=== PATIENT | female | born 1955 | race Caucasian/White ===

== ENCOUNTER → 2016-09-27 | Outpatient (CLI) | payer BC ==
[~2016-09-27] MED LIST: AMLO-110 PO; ASCO500T16 PO; ASPI325T45 PO; ATOR10TA88 PO; BLAC40CA2; CALC-494 PO; CANA1TAB PO; CHOL100010 PO; CYCL10TA6 PO; DULO60CA44 PO; HYDC25 PO; LIDO5DIS10 TD; METF-384 PO; MULT-506 PO; POTACAP PO; SUMA100T16 PO; TRAZ1TAB16 PO; [UNRECOGNIZED DRUG - CODE] PO
--- NOTE | 2016-09-27 15:29 | MAMMOGRAPHY REPORT ---
BILATERAL DIGITAL SCREENING MAMMOGRAM WITH CAD: 09/27/2016 CLINICAL HISTORY: Routine screening examination. TECHNIQUE: Bilateral CC and MLO views were obtained. Current study was also evaluated with a Comput er Aided Detection (CAD) system. COMPARISON: Comparison is made to exams dated: 09/15/2015 mammogram, 09/11/2014 mammogram, 09/10/2013 corey mogram, and 09/06/2011 mammogram - [facility]. BREAST COMPOSITION: There are scattered areas of fibroglandular density in both breasts. FINDINGS: There is a stable 17 mm mass in the 12:00 right breast, that is unchanged in size dating b ack to at least 06/06/2007. There is a benign rim calcification within the left breast. No new andry picious mass, architectural distortion or cluster of microcalcifications is seen. IMPRESSION: ACR BI-RADS CATEGORY 1: NEGATIVE There is no mammographic evidence of malignancy. A 1 year screening mammogram is recommended. The p atient will receive written notification of the results. Approximately 10% of breast cancers are not detected with mammography. A negative mammographic repor t should not delay biopsy if a clinically suggestive mass is present. Krystal Woodward M.D. ay/:09/27/2016 15:23:47 Game Room Attendant: Glenys CROFT(Della)(M), [facility] letter sent: Normal 1/2 BI-RADS Code: ACR BI-RADS Category 1: Negative
== END | disposition home or self-care (01) ==
LOC: C.MAMM 15:04
PROVIDERS: ATTEND Obstetrics & Gynecology
DX: Z12.31 Encounter for screening mammogram for malignant neoplasm of breast (principal)

== ENCOUNTER → 2017-05-25 | Outpatient (CLI) | payer BC ==
[~2017-05-25] MED LIST changes: +ATOR10TA82 PO; -ATOR10TA88 PO; +TRAZ-119 PO; -TRAZ1TAB16 PO
--- NOTE | 2017-05-25 17:49 | DIAGNOSTIC IMAGING REPORT ---
KUB HISTORY: Left-sided flank pain with history of nephrolithiasis N20.0 Nephrolithiasis COMPARISON: KUB 05/20/2016 FINDINGS: The bowel gas pattern is non-obstructive. There is no organomegaly. No definite renal or ureteral calculi. 4 mm radiodensity projects superior to the right renal shadow between the 11th and 12th ribs which is indeterminate. Moderate stool volume suggests constipation. The Stool partially obscures the renal shadows. No pneumoperitoneum or pneumatosis. No fracture. IMPRESSION: 1. No definite renal or ureteral calculi identified. 2. Suggested constipation. 3. Nonobstructive bowel gas pattern. Electronically signed by: Landry Tamayo M.D. 05/25/2017 5:47 PM Dictated Date/Time: 05/25/2017 5:45 PM
== END | disposition home or self-care (01) ==
LOC: C.RAD 17:04
PROVIDERS: ATTEND Urology
DX: N20.0 Calculus of kidney (principal)

== ENCOUNTER → 2017-05-30 | Outpatient (CLI) | payer BC ==
--- NOTE | 2017-05-30 13:06 | DIAGNOSTIC IMAGING REPORT ---
CT SCAN OF THE ABDOMEN AND PELVIS WITHOUT CONTRAST CLINICAL HISTORY: N20.1 Ureteral [id number] Left flank pain COMPARISON STUDY: 03/20/2013 TECHNIQUE: CT scan of the abdomen and pelvis was performed from the lung bases to the proximal femurs. Images are reviewed in the axial, sagittal, and coronal planes. IV contrast was not administered for this examination. A dose lowering technique was utilized adhering to the principles of ALARA. CT DOSE: 1120.44 mGy.cm FINDINGS: Lower chest: There are dependent bibasilar opacities, likely atelectatic. Liver: The unenhanced liver is normal in size, contour, and attenuation. There is no intrahepatic biliary ductal dilatation. Gallbladder: Unremarkable. Spleen: Normal in size and attenuation. Pancreas: Unremarkable. Adrenal glands: Unremarkable. Kidneys: No renal, ureteral, or bladder calculi are visualized. There are left renal parapelvic cysts. There is a 19 mm cortical cyst arising from the lower pole left kidney. Bowel: There are no transition zones to indicate bowel obstruction. Appendix appears normal. There is colonic diverticulosis. There are no acute peridiverticular inflammatory changes. Peritoneum: There is no intraperitoneal free air or abdominal ascites. Vasculature: The abdominal aorta is normal in course and caliber. Adenopathy: None. Pelvic viscera: The bladder, and pelvic viscera are unremarkable. Skeletal structures: No destructive osseous lesions are seen. IMPRESSION: 1. No renal, ureteral, or bladder calculi identified. 2. No evidence of bowel obstruction. No evidence of free air 3. Normal appendix 4. Colonic diverticulosis. No evidence of acute diverticulitis Electronically signed by: Bobby Weir M.D. 05/30/2017 1:04 PM Dictated Date/Time: 05/30/2017 12:57 PM
== END | disposition home or self-care (01) ==
LOC: C.CTS 12:33
PROVIDERS: ATTEND Nurse Practitioner Adult Health
DX: N20.1 Calculus of ureter (principal); R10.9 Unspecified abdominal pain; K57.30 Diverticulosis of large intestine without perforation or abscess without bleeding

== ENCOUNTER → 2017-10-10 | Outpatient (CLI) | payer OTHER ==
--- NOTE | 2017-10-11 07:55 | MAMMOGRAPHY REPORT ---
BILATERAL DIGITAL SCREENING MAMMOGRAM TOMOSYNTHESIS WITH CAD: 10/10/2017 CLINICAL HISTORY: Routine screening. Patient has no complaints. TECHNIQUE: Breast tomosynthesis in addition to standard 2D mammography was performed. Current study was also evaluated with a Computer Aided Detection (CAD) system. COMPARISON: Comparison is made to exams dated: 09/27/2016 mammogram, 09/15/2015 mammogram, 09/11/2014 corey mogram, 09/10/2013 mammogram, 09/07/2012 mammogram, and 09/06/2011 mammogram - [facility] BREAST COMPOSITION: There are scattered areas of fibroglandular density in both breasts. FINDINGS: There is a stable benign 15 mm lobulated and circumscribed mass in the 12:00 right breast. No suspicious spiculated or irregular mass, asymmetry, architectural distortion or cluster of microc alcifications is seen. IMPRESSION: ACR BI-RADS CATEGORY 1: NEGATIVE There is no mammographic evidence of malignancy. A 1 year screening mammogram is recommended. The pa tient will receive written notification of the results. Approximately 10% of breast cancers are not detected with mammography. A negative mammographic report should not delay biopsy if a clinically suggestive mass is present. Krystal Woodward M.D. ay/:10/10/2017 15:11:59 Auto Body Repair Estimator: Caity Ragland, [facility] letter sent: Normal 1/2 BI-RADS Code: ACR BI-RADS Category 1: Negative
== END | disposition home or self-care (01) ==
LOC: C.MAMM 08:15
PROVIDERS: ATTEND Obstetrics & Gynecology
DX: Z12.31 Encounter for screening mammogram for malignant neoplasm of breast (principal)

== ENCOUNTER 2021-08-26 04:58 | Observation (INO) ==
--- NOTE | 2021-08-09 12:39 | PAT Medication Instructions ---
Medication Instructions Date of Service August 09, 2021 Home Medications albuterol sulfate 90 mcg/actuation aerosol inhaler 1 puff INH UD PRN amlodipine 10 mg tablet 10 mg PO QAM ascorbic acid (vitamin C) 500 mg tablet 500 mg PO QAM aspirin 325 mg tablet 162.5 mg PO QAM atorvastatin 10 mg tablet 10 mg PO HS cyclobenzaprine 10 mg tablet 10 mg PO UD PRN diazepam 5 mg tablet 5 mg PO UD PRN (taken prior to flying) duloxetine 60 mg PO HS gabapentin 300 mg capsule 300 mg PO TID lidocaine 5 % topical patch (Lidoderm) 1 patch TRANSDERMAL UD PRN multivitamin 1 tab PO QAM potassium chloride 1 dose PO QAM psyllium husk 0.52 gram capsule 0.52 g PO DAILY PRN sumatriptan succinate 100 mg tablet 100 mg PO UD PRN trazodone 150 mg tablet 75 mg PO HS Elecon Topical Cream 1 dose TOPICAL DAILY cholecalciferol (vitamin D3) 125 mcg (5,000 unit) tablet (Vitamin D3) 125 mcg PO QAM glucosamine sulf dipot chlr,msm,chond 550 mg-C 30 mg-isidro 1 mg capsule (Glucosamine Chondroitin) 1 cap PO QAM meloxicam 15 mg tablet 15 mg PO QAM metformin 500 mg tablet 500 mg PO BID turmeric 400 mg capsule 400 mg PO QAM vitamin B complex 1 cap PO QAM ASK your surgeon for instructions lidocaine 5 % topical patch (Lidoderm) 1 patch TRANSDERMAL UD PRN (do not put on or near surgical site) meloxicam 15 mg tablet 15 mg PO QAM ASK your prescriber and surgeon aspirin 325 mg tablet 162.5 mg PO QAM STOP taking 2 weeks before surgery glucosamine sulf dipot chlr,msm,chond 550 mg-C 30 mg-isidro 1 mg capsule (Glucosamine Chondroitin) 1 cap PO QAM turmeric 400 mg capsule 400 mg PO QAM STOP taking 24 hours before surgery Elecon Topical Cream 1 dose TOPICAL DAILY DO NOT take the morning of surgery ascorbic acid (vitamin C) 500 mg tablet 500 mg PO QAM cyclobenzaprine 10 mg tablet 10 mg PO UD PRN multivitamin 1 tab PO QAM potassium chloride 1 dose PO QAM psyllium husk 0.52 gram capsule 0.52 g PO DAILY PRN cholecalciferol (vitamin D3) 125 mcg (5,000 unit) tablet (Vitamin D3) 125 mcg PO QAM metformin 500 mg tablet 500 mg PO BID vitamin B complex 1 cap PO QAM Take morning of surgery With a small sip of water, OTHERWISE NOTHING TO EAT OR DRINK AFTER MIDNIGHT: albuterol sulfate 90 mcg/actuation aerosol inhaler 1 puff INH UD PRN(use if needed; please bring with you to hospital day of surgery if possible) amlodipine 10 mg tablet 10 mg PO QAM gabapentin 300 mg capsule 300 mg PO TID sumatriptan succinate 100 mg tablet 100 mg PO UD PRN(if needed) Take evening before surgery albuterol sulfate 90 mcg/actuation aerosol inhaler 1 puff INH UD PRN(if needed) atorvastatin 10 mg tablet 10 mg PO HS cyclobenzaprine 10 mg tablet 10 mg PO UD PRN(if needed) duloxetine 60 mg PO HS gabapentin 300 mg capsule 300 mg PO TID sumatriptan succinate 100 mg tablet 100 mg PO UD PRN(if needed) trazodone 150 mg tablet 75 mg PO HS metformin 500 mg tablet 500 mg PO BID Other Notes If you have any questions please call us at [phone] or [phone] or [phone] or [phone]
--- NOTE | 2021-08-12 13:27 | Anesthesiology Consultation ---
Date of Service August 12, 2021 Assessment & Plan (1) Encounter for pre-operative examination: - check BSG am DOS. - T&S: Not obtained at [facility] appt in error, pt contacted and states has PCP [facility] appt 08/18/21 and will come to [facility] same day, aware it will need done within [place]. - surgeon ordered medical clearance. - Outpatient joint assessment: Patient is currently scheduled for inpatient pathway. If re-evaluated pending system levels during current pandemic/surgeon requests outpatient pathway, patient is not recommended candidate for outpatient joint program from anesthesia standpoint. - COVID screening: Per assessment on 08/12/2021: Travel screen negative, no known COVID-19 positive contacts or current COVID-19 related symptoms in past 2 weeks. Patient vaccinated. Surgeon arranging preop COVID testing, scheduled 08/24/2021. Awaiting results. Chart Review Chart Review: Pending: Refer to Additional Notes / Consult section (pending medical clearance and T&S) and Patient seen in Pre Admission Testing Teaching & Discussion Pre-Anesthesia Teaching/Discussion Notes: Instructed NPO after midnight before surgery, except medications with 15 cc of water. Medication instructions provided according to the [facility] guidelines. History Surgery Operation Date: 08/26/21 07:00 Proposed Procedures p Right Total Hip Arthroplasty - Tapan Quick MD Height/Weight Height: 5 ft 2 in Weight: 75.5 kg Allergies Allergy/AdvReac Type Severity Reaction Status Date / Time tetracycline Allergy Mild Rash Unverified 08/09/21 10:48 nickel Allergy Rash Verified 08/09/21 10:51 Penicillins Allergy Unknown Verified 08/09/21 10:48 steri-strips Allergy Rash Uncoded 08/09/21 10:51 Medications Home Medications Medication Instructions Recorded Confirmed Last Taken albuterol sulfate 90 mcg/actuation 1 puff INH UD PRN 09/26/19 08/09/21 Unknown aerosol inhaler amlodipine 10 mg tablet 10 mg PO QAM 09/26/19 08/09/21 Unknown ascorbic acid (vitamin C) 500 mg 500 mg PO QAM 09/26/19 08/09/21 Unknown tablet aspirin 325 mg tablet 162.5 mg PO QAM 09/26/19 08/09/21 Unknown atorvastatin 10 mg tablet 10 mg PO HS 09/26/19 08/09/21 Unknown cyclobenzaprine 10 mg tablet 10 mg PO UD PRN 09/26/19 08/09/21 Unknown diazepam 5 mg tablet 5 mg PO UD PRN 09/26/19 08/09/21 Unknown duloxetine 60 mg PO HS 09/26/19 08/09/21 Unknown gabapentin 300 mg capsule 300 mg PO TID 09/26/19 08/09/21 Unknown lidocaine 5 % topical patch 1 patch TRANSDERMAL UD PRN 09/26/19 08/09/21 Unknown (Lidoderm) multivitamin 1 tab PO QAM 09/26/19 08/09/21 Unknown potassium chloride 1 dose PO QAM 09/26/19 08/09/21 Unknown psyllium husk 0.52 gram capsule 0.52 g PO DAILY PRN 09/26/19 08/09/21 Unknown sumatriptan succinate 100 mg tablet 100 mg PO UD PRN 09/26/19 08/09/21 Unknown trazodone 150 mg tablet 75 mg PO HS 09/26/19 08/09/21 Unknown Elecon Topical Cream 1 dose TOPICAL DAILY 08/09/21 08/09/21 Unknown cholecalciferol (vitamin D3) 125 125 mcg PO QAM 08/09/21 08/09/21 Unknown mcg (5,000 unit) tablet (Vitamin D3) glucosamine sulf dipot 1 cap PO QAM 08/09/21 08/09/21 Unknown chlr,msm,chond 550 mg-C 30 mg-isidro 1 mg capsule (Glucosamine Chondroitin) meloxicam 15 mg tablet 15 mg PO QAM 08/09/21 08/09/21 Unknown metformin 500 mg tablet 500 mg PO BID 08/09/21 08/09/21 Unknown turmeric 400 mg capsule 400 mg PO QAM 08/09/21 08/09/21 Unknown vitamin B complex 1 cap PO QAM 08/09/21 08/09/21 Unknown Past Medical History Medical History Abnormal ultrasound > 5 yrs ago; reports incidental finding on ultrasound of left neck/chest prior to parathyroidectomy. clot vs abnormal blood vessel?? was monitored for several months [facility] and no changes. Chronic pain DDD (degenerative disc disease) cervical and lumbar per pt Depression DM type 2 (diabetes mellitus, type 2) controlled, stable per pt GERD (gastroesophageal reflux disease) PRN OTC antacids History of anesthesia reaction woke up during facial surgery for left orbit fracture as a child History of cardiac murmur as a child denies detection in adulthood History of gastric ulcer History of hepatitis B History of migraine HLD (hyperlipidemia) HTN (hypertension) controlled, stable per pt Hypercalcemia Osteoarthritis Spinal stenosis Stage 3a chronic kidney disease (CKD) Suspected sleep apnea spouse has witnessed apnea Patient denies h/o stroke, seizures, heart attack, heart failure or blood transfusions. Exercise / Class Metabolic Activity III < 4 Walking/Shop/Light housework (denies CP or SOB, avoid stairs d/t orthopedic limitations) Past Family History Family History Mother Nephrolithiasis Other Cancer Hypertension No family history of adverse response to anesthesia Past Surgical History Surgical History H/O laminectomy cervical; limited ROM side to side H/O: section History of x2 History of carpal tunnel surgery of left wrist History of colonoscopy History of cystoscopy with stone extraction History of esophagogastroduodenoscopy (EGD) History of facial surgery left orbit fracture as a child History of lithotripsy History of parathyroidectomy History of repair of anterior cruciate ligament of right knee History of tonsillectomy Past Anesthesia History No Family Hx of Anesthesia Complications and Other (woke during facial surgery in childhood) History of PONV History of PONV and Hx of Motion Sickness Social History Smoking Status: Former smoker Do You Dip or Chew Tobacco: No Smoking End Date: 33 years ago Hx Alcohol Use: No Hx Substance Use: Yes substance use type: marijuana Substance Use Type Other:: medical marijuana Last Used Substance: Unknown Review of Systems She reports chronic intermittent cough in winter, nonproductive, related to postnasal drip. Patient denies chest pain, shortness of breath, dyspnea on exertion, reflux, fever, chills, wheezing, or palpitations. Physical Exam Vital Signs Vitals BP 135/76 P 75 TEMP 98.4 SP02 97% on RA RESP 16 Physical Mildly limited cervical extension range of motion without pain TMD 3.5 finger breaths Mallampati Score 3 Dentition: intact, partial upper right front to side and several missing lower side and back; denies chipped or loose teeth, caps/crowns or implants Lungs: normal respiratory effort. Clear throughout to auscultation, no adventitious breath sounds Cardiac: regular rate and rhythm, no murmurs noted Carotid arteries: negative bruit bilat Extremities: no distal extremity edema Testing Laboratory Results 08/12/2021 SODIUM: 144 POTASSIUM: 4.0 CHLORIDE: 105 CO2: 25 BUN: 19 CREATININE: 1.1 GLUCOSE: 102 A1c: 5.2% Electrocardiogram Date: 08/12/21 NSR, rate 64 bpm
--- NOTE | 2021-08-12 15:42 | History & Physical Report ---
Date of Service August 12, 2021 Assessment & Plan (1) Osteoarthritis of right hip: Plan: PRE-OP Diagnosis: Right hip osteoarthritis Planned Procedure: Right total hip arthroplasty Plan: Patient is scheduled to undergo this procedure at the [facility] with 23-hour observation admission on , August 26, [address] Tapan Quick. Risks and complications of the procedure such as: Infection, bleeding, pain, scarring, nerve blood vessel damage, weakness, wound problems, stiffness, incomplete relief of symptoms, hardware failure, hardware loosening, wear, fracture, tendon or ligament injury, dislocation, leg length inequality, blood clots, embolism, heart attack, stroke and were explained to the patient at her visit today. Informed consent to perform the procedure was obtained. Patient also understands risks of proceeding with surgical intervention during COVID-19 pandemic. Currently she is asymptomatic and understands that she will need to be tested prior to surgery. Patient states she has an upcoming appointment with her primary care provider Dr. Mcgarry for clearance. She states that she has an appointment with anesthesia the hospital later this morning. While there she will obtain a CBC with differential, complete metabolic panel, PT/INR, blood type and screen, urinalysis, urine culture and sensitivity, EKG, hemoglobin A1c and a nasal culture for MRSA. During today's visit we discussed discharge planning from the hospital following surgery. We reviewed the total hip packet in total hip precautions. Patient states she already has a walker, hip kit, shower chair and a raised toilet seat at home. We discussed joint venture lectures offered by [facility] in regards to joint replacement surgery. Patient states she will most likely attend one of the upcoming ones via zoom. We also discussed antibiotic use following joint replacement surgery prior to dental appointments. Advised the patient she will be discharged from the hospital with a narcotic pain medication, and anti-inflammatory and some type of blood thinning agents. We may consider either Eliquis or Xarelto due to her history of jugular venous thrombosis. I advised the patient that case management will meet with her prior to discharge to get her set up with some in-home therapy for the first 2 weeks postoperatively. At her 2-week postoperative follow-up with myself on September 10 at 1 PM I will provide her with an order for outpatient physical therapy along with her rehab protocol. Patient verbalized understanding of all information provided during today's visit. She thanks for the care that she received. If she has questions or concerns should arise prior to her surgery, she will contact the clinic. History of Present Illness Chief Complaint: Chief Complaint: Bilateral hip pain Primary Care Provider: Demetris Mcgarry MD History of Present Illness (including history relevant to procedure): This 65-year-old female presents the clinic today for preoperative history and physical. Patient complains of bilateral hip pain for the past several years. She states her right bothers her much more than her left. She states that she has tried meloxicam Advil Tylenol. Has had multiple ultrasound-guided corticosteroid injections into her hip joints without relief. She has done extensive physical therapy and some home rehab and feels that her pain continues to become worse. She has difficulty going up or down stairs. She states that even putting on pants is sometimes difficult. Patient is ready to proceed with surgical intervention for hip osteoarthritis. Review Of Systems: A 12 point review of systems is performed and is unremarkable except for those things stated in the HPI and past medical history. Past Medical History: Problems: Degenerative joint disease of right hip Bilateral hip joint arthritis. Metatarsal fracture with malunion Injury of left foot Metatarsal fracture Status post surgery Internal jugular vein thrombosis Weight monitoring Preoperative state Anxiety depression Acne MIGRAINE Hypercholesterolemia HYPERTENSION Difficulty sleeping NECK PAIN Undiagnosed sleep apnea Diabetes Hypothyroidism History of renal calculi History of hepatitis B Procedure History Procedure Procedure Date Comments section: 89 & 92 Parathyroidectomy 2014 Kidney stones Operation 2010 & 2013 Lithotripsy 2013 Colonoscopy 2004 Cervical laminectomy 2002 Carpal tunnel release 2000 ACL - Right Reconstruction of anterior cruciate ligament 1995 Eye operation 1967 Reconstruction of facial bones 1967 Tonsillectomy 196 Allergies and Sensitivities: tetracycline(Rash) Social history: Patient denies tobacco or alcohol use. She states that she uses medical marijuana for her chronic pain. Family history: Cancer: MGF, Mother Diabetes mellitus: MGM Heart attack: PGF, PGM Heart disease: PGF, PGM Lung cancer......: Father Current Home Meds: (Last Updated 08/12 11:43) APAP/ASA/caffeine (Excedrin Migraine oral tablet) 2 tab PO ONCE PRN: as needed for headache DULoxetine (DULoxetine 30 mg oral delayed release capsule) 30 mg PO Daily amlodipine (amLODIPine 10 mg oral tablet) 10 mg PO qAM ascorbic acid (Vitamin C 500 mg oral capsule) 1 cap PO Daily aspirin 160 mg PO Daily atorvastatin (Lipitor 10 mg oral tablet) 10 mg PO qhs calcium and vitamin D combination 1 tab PO Daily cyclobenzaprine (Flexeril 10 mg oral tablet) 10 mg PO tid PRN: as needed for spasm diazePAM diclofenac topical (diclofenac 1% topical gel) 1 appl topical qid gabapentin (gabapentin 300 mg oral capsule) hydrochlorothiazide 25 mg PO Daily dose unknown daily - D Calixto 01/19 12:46 lidocaine topical (Lidoderm 5% topical patch) topical Daily meloxicam (Mobic 15 mg oral tablet) 15 mg PO Daily metFORMIN (metformin) 500 mg PO Daily multivitamin 1 tab PO Daily multivitamin (B-Complex 50) polycarbophil (Fibertab) 1 tab PO Daily potassium chloride (potassium chloride 99 mg oral tablet) 99 mg PO Daily sumatriptan (Imitrex 100 mg oral tablet) 1 tab PO ONCE PRN: as needed for migraine headache trazodone (traZODone 50 mg oral tablet) 50 mg PO qhs PRN: sleep Initial Wt: 08/12 74.8 kg 165 lb Allergies Allergy/AdvReac Type Severity Reaction Status Date / Time tetracycline Allergy Mild Rash Unverified 08/09/21 10:48 nickel Allergy Rash Verified 08/09/21 10:51 Penicillins Allergy Unknown Verified 08/09/21 10:48 steri-strips Allergy Rash Uncoded 08/09/21 10:51 Home Medications Medication Instructions Recorded Confirmed Type albuterol sulfate 90 mcg/actuation 1 puff INH UD PRN 09/26/19 08/09/21 History aerosol inhaler amlodipine 10 mg tablet 10 mg PO QAM 09/26/19 08/09/21 History ascorbic acid (vitamin C) 500 mg 500 mg PO QAM 09/26/19 08/09/21 History tablet aspirin 325 mg tablet 162.5 mg PO QAM 09/26/19 08/09/21 History atorvastatin 10 mg tablet 10 mg PO HS 09/26/19 08/09/21 History cyclobenzaprine 10 mg tablet 10 mg PO UD PRN 09/26/19 08/09/21 History diazepam 5 mg tablet 5 mg PO UD PRN 09/26/19 08/09/21 History duloxetine 60 mg PO HS 09/26/19 08/09/21 History gabapentin 300 mg capsule 300 mg PO TID 09/26/19 08/09/21 History lidocaine 5 % topical patch 1 patch TRANSDERMAL UD PRN 09/26/19 08/09/21 History (Lidoderm) multivitamin 1 tab PO QAM 09/26/19 08/09/21 History potassium chloride 1 dose PO QAM 09/26/19 08/09/21 History psyllium husk 0.52 gram capsule 0.52 g PO DAILY PRN 09/26/19 08/09/21 History sumatriptan succinate 100 mg tablet 100 mg PO UD PRN 09/26/19 08/09/21 History trazodone 150 mg tablet 75 mg PO HS 09/26/19 08/09/21 History Elecon Topical Cream 1 dose TOPICAL DAILY 08/09/21 08/09/21 History cholecalciferol (vitamin D3) 125 125 mcg PO QAM 08/09/21 08/09/21 History mcg (5,000 unit) tablet (Vitamin D3) glucosamine sulf dipot 1 cap PO QAM 08/09/21 08/09/21 History chlr,msm,chond 550 mg-C 30 mg-isidro 1 mg capsule (Glucosamine Chondroitin) meloxicam 15 mg tablet 15 mg PO QAM 08/09/21 08/09/21 History metformin 500 mg tablet 500 mg PO BID 08/09/21 08/09/21 History turmeric 400 mg capsule 400 mg PO QAM 08/09/21 08/09/21 History vitamin B complex 1 cap PO QAM 08/09/21 08/09/21 History Past Med/Surg History Medical History Abnormal ultrasound > 5 yrs ago; reports incidental finding on ultrasound of left neck/chest prior to parathyroidectomy. clot vs abnormal blood vessel?? was monitored for several months [facility] [place] and no changes. Chronic pain DDD (degenerative disc disease) cervical and lumbar per pt Depression DM type 2 (diabetes mellitus, type 2) controlled, stable per pt GERD (gastroesophageal reflux disease) PRN OTC antacids History of anesthesia reaction woke up during facial surgery for left orbit fracture as a child History of cardiac murmur as a child denies detection in adulthood History of gastric ulcer History of hepatitis B History of migraine HLD (hyperlipidemia) HTN (hypertension) controlled, stable per pt Hypercalcemia Osteoarthritis Spinal stenosis Stage 3a chronic kidney disease (CKD) Suspected sleep apnea spouse has witnessed apnea Surgical History H/O laminectomy cervical; limited ROM side to side H/O: section History of x2 History of carpal tunnel surgery of left wrist History of colonoscopy History of cystoscopy with stone extraction History of esophagogastroduodenoscopy (EGD) History of facial surgery left orbit fracture as a child History of lithotripsy History of parathyroidectomy History of repair of anterior cruciate ligament of right knee History of tonsillectomy Family History Mother Nephrolithiasis Other Cancer Hypertension No family history of adverse response to anesthesia Social History Smoking Status: Former smoker Second Hand Exposure: No; Hx Alcohol Use: No Hx Substance Use: Yes Last Used Substance: Unknown Substance Use Type Other:: medical marijuana Preferred Language: Chinese Communication Ability: Effective Police Aide Required: No Beliefs That Will Affect Care: None Current Living Situation: Spouse Feels Safe at Home: Yes Assistive Devices: Cane, Glasses and Walker Review of Systems All systems reviewed & are unremarkable except as noted in Subjective Physical Exam Physical Exam: Physical Exam: (relevant to the procedure, including heart and lung evaluation) General: Alert and oriented x3 with proper grooming and hygiene Eyes: Pupils are equal and reactive to light with accommodation. Extraocular moods are intact Throat: Deferred due to COVID-19 precautions Cardiac: Regular rate and rhythm no murmurs or gallops appreciated Lungs: Clear to auscultation throughout with no wheezing, rales or rhonchi Abdomen: Mildly obese, nondistended, nontender with NABS Extremities: Right hip; flexion is limited to 90 degrees, external rotation to 50 degrees and internal rotation to 0 degrees. All of these positions cause referred pain to the groin. Straight leg raise test causes referred pain to the groin as the Stinchfield test. There is palpable crepitation with passive range of motion. Patient is neurovascularly intact in right lower extremity. She does walk with a slight antalgic gait. Neuro: Cranial nerves II through XII are intact with no motor or sensory deficit Skin: Normal in appearance with no open skin areas or discharge Results & Data ([facility]) Diagnostic Findings Studies (relevant to the procedure): X-rays done today, personally interpreted by me include standing AP pelvis and 2 views of each hip. These are compared with her prior films done back in June 2018. There has been interval loss of the superior joint space bilaterally. She has now [id number] arthritis in both hips.
--- NOTE | 2021-08-25 09:00 | Anesthesiology Consultation ---
Date of Service August 25, 2021 History Surgery Operation Date: 08/26/21 07:00 Proposed Procedures p Right Total Hip Arthroplasty - Tapan Quick MD Height/Weight Height: 5 ft 2 in Weight: 75.5 kg Allergies Allergy/AdvReac Type Severity Reaction Status Date / Time tetracycline Allergy Mild Rash Unverified 08/09/21 10:48 nickel Allergy Rash Verified 08/09/21 10:51 Penicillins Allergy Unknown Verified 08/09/21 10:48 steri-strips Allergy Rash Uncoded 08/09/21 10:51 Medications Home Medications Medication Instructions Recorded Confirmed Last Taken albuterol sulfate 90 mcg/actuation 1 puff INH UD PRN 09/26/19 08/09/21 Unknown aerosol inhaler amlodipine 10 mg tablet 10 mg PO QAM 09/26/19 08/09/21 Unknown ascorbic acid (vitamin C) 500 mg 500 mg PO QAM 09/26/19 08/09/21 Unknown tablet aspirin 325 mg tablet 162.5 mg PO QAM 09/26/19 08/09/21 Unknown atorvastatin 10 mg tablet 10 mg PO HS 09/26/19 08/09/21 Unknown cyclobenzaprine 10 mg tablet 10 mg PO UD PRN 09/26/19 08/09/21 Unknown diazepam 5 mg tablet 5 mg PO UD PRN 09/26/19 08/09/21 Unknown duloxetine 60 mg PO HS 09/26/19 08/09/21 Unknown gabapentin 300 mg capsule 300 mg PO TID 09/26/19 08/09/21 Unknown lidocaine 5 % topical patch 1 patch TRANSDERMAL UD PRN 09/26/19 08/09/21 Unknown (Lidoderm) multivitamin 1 tab PO QAM 09/26/19 08/09/21 Unknown potassium chloride 1 dose PO QAM 09/26/19 08/09/21 Unknown psyllium husk 0.52 gram capsule 0.52 g PO DAILY PRN 09/26/19 08/09/21 Unknown sumatriptan succinate 100 mg tablet 100 mg PO UD PRN 09/26/19 08/09/21 Unknown trazodone 150 mg tablet 75 mg PO HS 09/26/19 08/09/21 Unknown Elecon Topical Cream 1 dose TOPICAL DAILY 08/09/21 08/09/21 Unknown cholecalciferol (vitamin D3) 125 125 mcg PO QAM 08/09/21 08/09/21 Unknown mcg (5,000 unit) tablet (Vitamin D3) glucosamine sulf dipot 1 cap PO QAM 08/09/21 08/09/21 Unknown chlr,msm,chond 550 mg-C 30 mg-isidro 1 mg capsule (Glucosamine Chondroitin) meloxicam 15 mg tablet 15 mg PO QAM 08/09/21 08/09/21 Unknown metformin 500 mg tablet 500 mg PO BID 08/09/21 08/09/21 Unknown turmeric 400 mg capsule 400 mg PO QAM 08/09/21 08/09/21 Unknown vitamin B complex 1 cap PO QAM 08/09/21 08/09/21 Unknown Past Medical History Medical History (Updated 08/25/21 @ 08:59 by Gretchen Juan PA-C) Abnormal ultrasound > 5 yrs ago; reports incidental finding on ultrasound of left neck/chest prior to parathyroidectomy. clot vs abnormal blood vessel--was monitored for several months [facility] [place] and no changes. no available records per [facility]. Chronic pain DDD (degenerative disc disease) cervical and lumbar per pt Depression DM type 2 (diabetes mellitus, type 2) controlled, stable per pt GERD (gastroesophageal reflux disease) PRN OTC antacids History of anesthesia reaction woke up during facial surgery for left orbit fracture as a child History of cardiac murmur as a child denies detection in adulthood History of gastric ulcer History of hepatitis B History of migraine HLD (hyperlipidemia) HTN (hypertension) controlled, stable per pt Hypercalcemia Osteoarthritis Spinal stenosis Stage 3a chronic kidney disease (CKD) Suspected sleep apnea spouse has witnessed apnea Past Family History Family History Mother Nephrolithiasis Other Cancer Hypertension No family history of adverse response to anesthesia Past Surgical History Surgical History H/O laminectomy cervical; limited ROM side to side H/O: section History of x2 History of carpal tunnel surgery of left wrist History of colonoscopy History of cystoscopy with stone extraction History of esophagogastroduodenoscopy (EGD) History of facial surgery left orbit fracture as a child History of lithotripsy History of parathyroidectomy History of repair of anterior cruciate ligament of right knee History of tonsillectomy Social History Smoking Status: Former smoker Do You Dip or Chew Tobacco: No Smoking End Date: 33 years ago Hx Alcohol Use: No Hx Substance Use: Yes substance use type: marijuana Substance Use Type Other:: medical marijuana Last Used Substance: Unknown Testing Laboratory Results Blood Type A Positive 08/18/21 11:36 Antibody Screen NEGATIVE 08/18/21 11:36
[2021-08-26] MEDS ORDERED: Scopolamine 1 MG TDSY TD SCH (06:00)
[2021-08-26] MEDS ORDERED: LR 60ML/HR IV SCH (06:00)
[2021-08-26] MEDS ORDERED: FAMOTIDINE 20 MG TAB PO SCH (06:00)
[2021-08-26] MEDS ORDERED: LR 500ML BOLUS, THEN 15ML/HR IV SCH (06:00)
[2021-08-26] MEDS ORDERED: dexAMETHasone 4 MG TAB PO SCH (06:00)
[2021-08-26] MEDS ORDERED: TRANEXAMIC ACID 1,000 MG **IV Intra-op IV SCH (06:00)
[2021-08-26] MEDS ORDERED: TRANEXAMIC ACID 1,000 MG **IV Pre-op IV SCH (06:00)
[2021-08-26] MEDS ORDERED: traMADol HCL 50 MG TABLET PO SCH (06:00)
[2021-08-26] MEDS ORDERED: ROPIVACAINE 0.5% HCL/PF 150 MG, BUPIVACAINE 0.75% MPF 20 ML, EPINEPHrine 0.15 MG, Ketor... INFIL SCH (06:00)
[2021-08-26] MEDS ORDERED: ACETAMINOPHEN 500 MG TAB PO SCH (06:00)
[2021-08-26] MEDS ORDERED: BUPIVACAINE 0.5 % 5 MG/1 ML PF 10ML VIAL ONE (06:24)
[2021-08-26] MEDS ORDERED: ceFAZolin 2000MG 2,000 MG/15 ML SYR IV STA (06:32)
[2021-08-26] MEDS ORDERED: ORTHO JOINT ANESTHETIC ONE (06:36)
--- NOTE | 2021-08-26 06:40 | History & Physical Bridge Note ---
Date of Service August 26, 2021 History & Physical Bridge Note I have examined the patient, reviewed the History & Physical and in the interval since the performance of the History & Physical I have noted the following changes of clinical significance: no changes noted
[2021-08-26] MEDS ORDERED: fentaNYL citrate 100 MCG/2 ML VIAL ONE (06:46)
[2021-08-26] MEDS ORDERED: MIDAZOLAM HCL 1 MG/ML 2ML VIAL ONE ×2 (06:46)
[2021-08-26] MEDS ORDERED: ATROPINE SULFATE 0.1 MG/ML 10ML SYR IV PRN (07:47)
[2021-08-26] MEDS ORDERED: ePHEDrine sulfate 50 MG/ML AMP IV PRN (07:47)
[2021-08-26] MEDS ORDERED: PHENYLEPHRINE 100MCG/ML 5ML SYR ONE (07:51)
[2021-08-26] MEDS ORDERED: ePHEDrine sulfate 50 MG/ML SYR ONE (07:51)
[2021-08-26] MEDS ORDERED: LIDOCAINE 2% 2 ML VIAL/AMP(20MG/ML) INFIL ONE (07:51)
[2021-08-26] MEDS ORDERED: PROPOFOL IV EMULSION 10 MG/ML 20 ML VIAL IV ONE ×2 (07:51)
[2021-08-26] MEDS ORDERED: PHENYLEPHRINE HCL 10 MG/ML VIAL ONE (07:51)
--- NOTE | 2021-08-26 08:38 | Operative Report ---
Post Operative Report Pre & Post Diagnosis Operation Date: 08/26/21 07:00 Pre-Op Diagnosis: Right Hip Osteoarthritis Post-Op Diagnosis: Right Hip Osteoarthritis I identified the patient and participated in the time-out.: Yes Procedure Operation Date: 08/26/21 07:00 Actual Procedures p Right Total Hip Arthroplasty(Right) - Tapan Quick MD Surgeon Tapan Quick MD Buildings And Grounds Coordinator ULISES Bennett PA-C. No resident or fellow was available to assist. Estimated Blood Loss 100 Findings Consistent with Post-Op Diagnosis Specimens Right femoral head Anesthesia Type Spinal MAC Complications none Disposition Disposition: Recovery Room Indications 66-year-old female with right hip arthritis refractory to conservative management. X-rays show [id number] arthritis. Had a long discussion with her about the risks and benefits of surgery, alternatives to surgery, and expected outcomes. After reviewing all these she elected to proceed with surgery. All questions were answered. Informed consent was signed. Description of Procedure Patient was identified in the preoperative holding area and the surgical site, right hip, was marked. A spinal anesthetic was placed, then the patient was brought back to the main operating room, placed in the operating table and moved into the lateral decubitus position. Axillary roll was placed. All bony prominences were padded. Perioperative antibiotics and tranexamic acid 1 gram IV were administered. Operative extremity was prepped and draped in the normal sterile fashion. Prior to incision a multidisciplinary timeout was called. All in the room were in agreement. We began by making an incision for a posterior approach to the hip. We dissected down through subcutaneous tissues to the level of the fascia. The fascia was incised in line with the incision. Charnley bow was placed. The trochanteric bursa was excised. The piriformis and short external rotators were dissected off the posterior aspect of the hip. A box cut was made in the capsule. The femoral head was dislocated. The femoral neck cut was made at our preoperative template. The acetabulum was then exposed. The labrum was sharply excised. Contents of the cotyloid fossa were removed with electrocautery. We then began reaming at a size 8 mm less than our preoperative template. We reamed up by 1 [address] the way up to a size 54 mm cup. This gave us good bleeding cancellus bone circumferentially. The acetabulum was then irrigated out and dried. The real Conway Gription cup was then impacted down into position with 45 degrees of lateral opening and 25 degrees of anteversion. A single cancellous bone screw was placed up into the ilium. Excellent fixation was obtained. An Altrx polyethylene liner for a 36 mm femoral head was then impacted into the shell. The locking mechanism was checked to ensure that it had engaged which it had. Next we turned our attention to the femur. The lateral neck was removed with a box osteotome. Intramedullary guide was used followed by the lateralizing reamer. We then reamed up to a size 4 Dorado stem. We then broached all the way up to a size 4. We began trialing with a standard offset neck and a +1.5 head. Hip was reduced. Leg lengths were symmetric. The hip was stable in extension and external rotation, and stable in the sleeper position. At 90 degrees of hip flexion the hip could be internally rotated 70 degrees before levering out of the cup. I was very happy with the stability exam. Therefore the hip was dislocated and the femoral trial was removed. The femoral canal was irrigated and dried. The real size 4 standard offset Dorado femoral stem was opened up. This was impacted down into position. It sat 1 mm higher than the femoral trial. I did not want to downsize offset of the femoral head due to the risk of instability, and therefore the 36 mm ceramic femoral head with a +1.5 mm offset was opened up and gently impacted down onto the trunnion. The hip was atraumatically reduced. Another 1 gram of IV tranexamic acid was started prior to closure. The wound was irrigated out with sterile Betadine solution. The periarticular injection cocktail was then placed. The short external rotators, piriformis, and posterior capsule were repaired through drill holes in the greater trochanter using #2 Vicryl. The fascia was run with a looped #1 PDS. The subcutaneous layer was closed with #1 PDS. The dermal layer was closed with 2-0 Vicryl. Zip line was used for the skin followed by a Silverlon dressing. A compressive dressing was then placed. The patient was then rolled supine. Leg lengths were rechecked and were symmetric. An abduction pillow was placed. Sedation was lifted and the patient was transferred to recovery room in stable condition. Summary of implants: FireIDuy Conway Gription Acetabular Shell Sector Cup, 54 mm outer diameter Conway Cancellous bone screw, 6.5 x 30 mm Conway Altrx Polyethylene Acetabular Liner, Neutral, with a 36 mm inner diameter DePuy Dorado Femoral stem with Porocoat, 12/14 taper, size 4 standard 36 mm ceramic femoral head with +1.5 offset Postoperative course: Patient will be admitted to the hospital from the recovery room. Patient will be weightbearing as tolerated with posterior hip precautions. Aspirin for DVT prophylaxis I attest to the content of the Intraoperative Record and any orders documented therein. Any exceptions are noted below.
--- NOTE | 2021-08-26 08:47 | Operative Report ---
Post Operative Report Pre & Post Diagnosis Operation Date: 08/26/21 07:00 Pre-Op Diagnosis: Right Hip Osteoarthritis Post-Op Diagnosis: Right Hip Osteoarthritis I identified the patient and participated in the time-out.: Yes Procedure Operation Date: 08/26/21 07:00 Actual Procedures p Right Total Hip Arthroplasty(Right) - Tapan Quick MD Surgeon Tapan Quick MD Belt Cleaner ULISES Bennett PA-C. No resident or fellow was available to assist. Estimated Blood Loss 100 Findings Consistent with Post-Op Diagnosis Specimens Right femoral head Description of Procedure I was present during the entire case assisting with positioning, prepping, draping, wound retraction, wound closure, dressing and abduction pillow placement. No fellow present. Please see Dr. Quick procedure note for specifics of the case. I attest to the content of the Intraoperative Record and any orders documented therein. Any exceptions are noted below.
[2021-08-26] MEDS ORDERED: bisacodyL 10 MG SUPP PR PRN (08:48)
[2021-08-26] MEDS ORDERED: NALOXONE HCL 0.4 MG/1 ML VIAL/CARP IV PRN (08:48)
[2021-08-26] MEDS ORDERED: diphenhydrAMINE 50 MG/ML VIAL IV PRN (08:48)
[2021-08-26] MEDS ORDERED: METOCLOPRAMIDE HCL INJ 5 MG/ML 2 ML VIAL IV PRN (08:48)
[2021-08-26] MEDS ORDERED: ALUMINUM/MAGNESIUM SUSP 30 ML UDC PO PRN (08:48)
[2021-08-26] MEDS ORDERED: MAGNESIUM HYDROXIDE SUSP 30 ML UDC PO PRN (08:48)
[2021-08-26] MEDS ORDERED: ONDANSETRON INJ 2 MG/ML 2 ML VIAL IV PRN (08:48)
[2021-08-26] MEDS ORDERED: diazePAM 5 MG TABLET PO PRN (08:51)
[2021-08-26] MEDS ORDERED: LIDOCAINE 5% 1 PATCH TD PRN (08:51)
[2021-08-26] MEDS ORDERED: SUMAtriptan succinate 100 MG TAB PO PRN (08:51)
[2021-08-26] MEDS ORDERED: CYCLOBENZAPRINE HCL 10 MG TAB PO PRN (08:51)
[2021-08-26] MEDS ORDERED: ALBUTEROL HFA 8 GM INHALER INH PRN (08:51)
[2021-08-26] MEDS ORDERED: ASPIRIN 81 MG ECTAB PO SCH (09:00)
[2021-08-26] MEDS ORDERED: NON-FORMULARY MEDICATION (Multivitamin tablet) PO SCH (09:00)
[2021-08-26] MEDS ORDERED: POTASSIUM CHLORIDE PO SCH (09:00)
[2021-08-26] MEDS ORDERED: NON-FORMULARY MEDICATION (Glucos Sul 2kcl-Msm-Chond-C-Mn [Glucosamine Chondroitin] 550-30- PO SCH (09:00)
[2021-08-26] MEDS ORDERED: SODIUM CHLORIDE 0.9% 1000ML 1,000 ML IV SCH (09:00)
[2021-08-26] MEDS ORDERED: NON-FORMULARY MEDICATION (Turmeric 400 mg Capsule) PO SCH (09:00)
--- NOTE | 2021-08-26 09:18 | XRay Report ---
XR pelvis 1-2V routine CLINICAL HISTORY: Post Surgical. COMPARISON STUDY: No previous studies for comparison. TECHNIQUE: [A single AP radiograph was obtained. FINDINGS: There is no evidence for an acute fracture. The patient is status post noncemented total hip prosthes is on the right. There is mild narrowing of the left hip joint space. The SI joints are intact bilate rally. The remaining visualized bones of the pelvis are intact. No focal soft tissue abnormalities id entified. IMPRESSION: 1. Status post right total hip replacement. 2. Mild osteoarthritis of the left hip. ACT 112: Negative or not required by law. Electronically signed by: Piter Bauer M.D. 08/26/2021 9:17 AM
--- NOTE | 2021-08-26 09:22 | Anesthesiology Progress Note ---
Date of Service August 26, 2021 Anesthesia Post Procedure Vital Signs Vital Signs: Temp Pulse Pulse Resp BP Pulse Ox 08/26/21 09:15 36.2 C L 63 17 101/58 L 94 08/26/21 09:05 69 22 109/65 97 08/26/21 08:55 74 21 155/86 H 100 08/26/21 08:45 36.5 C 72 12 99/69 L 100 08/26/21 05:33 37 C 88 20 152/87 H 94 Transfer of Care Handoff Completed per policy Notes Mental Status: alert / awake / arousable Patient Amnestic to Procedure: Yes Nausea / Vomiting: adequately controlled Pain: adequately controlled Airway Patency, RR, SpO2: stable & adequate BP & HR: stable & adequate Hydration State: stable & adequate Neuraxial Anesthesia: was administered and sensory block is resolving Anesthetic Complications: no major complications apparent
[2021-08-26] MEDS ORDERED: PSYLLIUM 58.6% POWDER PACKET PO PRN (10:40)
[2021-08-26] MEDS: amLODIPine BESYLATE 5 MG TAB PO SCH (11:09)
[2021-08-26] MEDS: DOCUSATE SODIUM 100 MG CAP PO SCH ×2 (11:29→20:26)
[2021-08-26] MEDS: MULTIVITAMIN TAB PO SCH (11:29)
[2021-08-26] MEDS: MELOXICAM 7.5 MG TAB PO SCH (11:39)
[2021-08-26] MEDS: CHOLECALCIFEROL 5,000 UNITS 125 MCG TAB PO SCH (11:39)
[2021-08-26] MEDS: MOMETASONE FUROATE 0.1% CR 15 GM TUBE EXT SCH (11:39)
[2021-08-26] MEDS: ASCORBIC ACID 500 MG TAB PO SCH (11:39)
[2021-08-26] MEDS: GABAPENTIN 300 MG CAP PO SCH ×3 (11:40→22:15)
[2021-08-26] MEDS: KETOROLAC TROMETHAMINE 15 MG/ML VIAL IV SCH ×3 (11:40→22:15)
[2021-08-26] MEDS: VITAMIN B COMPLEX TAB PO SCH (11:40)
[2021-08-26] MEDS: ASPIRIN 81 MG CHEW PO SCH (11:41)
[2021-08-26] MEDS: metFORMIN HCL 500 MG TAB PO SCH ×2 (11:41→20:25)
[2021-08-26] MEDS: ACETAMINOPHEN 500 MG TAB PO SCH ×2 (14:47→22:15)
[2021-08-26] MEDS: ceFAZolin 2000MG 2,000 MG/15 ML SYR IV SCH ×2 (14:54→22:16)
[2021-08-26] MEDS ORDERED: TRANEXAMIC ACID / 0.7% NACL 1,000 MG/100 ML BAG IV SCH (15:00)
[2021-08-26] MEDS: Scopolamine CHECK PATCH PLACEMENT SCH (15:02)
[2021-08-26] MEDS: oxyCODONE HCL IR 5 MG TAB (IMMEDIATE RELEASE) PO PRN (18:01)
[2021-08-26] MEDS ORDERED: SENNA 8.6 MG TAB PO SCH (21:00)
[2021-08-26] MEDS ORDERED: DULoxetine HCL 60 MG CAP PO SCH (21:00)
[2021-08-26] MEDS ORDERED: traZODone HCL 50 MG TAB PO SCH (21:00)
[2021-08-26] MEDS ORDERED: ATORVASTATIN 10 MG TAB PO SCH (21:00)
[2021-08-27] MEDS: Scopolamine CHECK PATCH PLACEMENT SCH ×2 (00:20→08:29)
[2021-08-27] MEDS: oxyCODONE HCL IR 5 MG TAB (IMMEDIATE RELEASE) PO PRN ×2 (03:43→11:10)
[2021-08-27] MEDS: ACETAMINOPHEN 500 MG TAB PO SCH (05:27)
[2021-08-27] MEDS: KETOROLAC TROMETHAMINE 15 MG/ML VIAL IV SCH (05:27)
[2021-08-27 05:58] LABS: Basophils # (auto) 0.01 K/uL (0-0.2); Basophils % (auto) 0.1 %; Hematocrit (blood only) 31.6 % (37-47); Hemoglobin 10.4 g/dL (12.0-16.0); Immature Granulocytes # (auto) 0.02 K/uL (0.00-0.02); Immature Granulocytes % (auto) 0.2 %; Lymphocytes # (auto) 1.36 K/uL (1.2-3.4); Lymphocytes % (auto) 12.7 %; Mean Corpuscular Hgb Conc 32.9 g/dL (32-36); Mean Platelet Volume 9.2 fL (7.4-10.4); Monocytes # (auto) 1.14 K/uL (0.11-0.59); Monocytes % (auto) 10.6 %; Neutrophils # (auto) 8.18 K/uL (1.4-6.5); Neutrophils % (auto) 76.4 %; Platelet Count 250 K/uL (130-400); RDW Coefficient of Variation 13.7 % (11.5-14.5); RDW Standard Deviation 44.2 fL (36.4-46.3); Red Blood Count 3.59 M/uL (4.2-5.4); White Blood Count 10.71 K/uL (4.8-10.8)
[2021-08-27 06:19] LABS: BUN Creatinine Ratio 23.6 (10-20); Calcium 9.5 mg/dl (8.5-10.1); Creatinine Clr Calc Pharmacy 43.1 ml/min; Est GFR (African American) 53.3 ml/min; Potassium 4.6 mmol/L (3.5-5.1)
[2021-08-27] MEDS ORDERED: dexAMETHasone 4 MG TAB PO SCH (08:00)
[2021-08-27] MEDS: ASCORBIC ACID 500 MG TAB PO SCH (08:26)
[2021-08-27] MEDS: GABAPENTIN 300 MG CAP PO SCH (08:26)
[2021-08-27] MEDS: amLODIPine BESYLATE 5 MG TAB PO SCH (08:26)
[2021-08-27] MEDS: VITAMIN B COMPLEX TAB PO SCH (08:27)
[2021-08-27] MEDS: CHOLECALCIFEROL 5,000 UNITS 125 MCG TAB PO SCH (08:28)
[2021-08-27] MEDS: metFORMIN HCL 500 MG TAB PO SCH (08:28)
[2021-08-27] MEDS: ASPIRIN 81 MG CHEW PO SCH (08:28)
[2021-08-27] MEDS: DOCUSATE SODIUM 100 MG CAP PO SCH (08:28)
[2021-08-27] MEDS: MULTIVITAMIN TAB PO SCH (08:30)
[2021-08-27] MEDS: MOMETASONE FUROATE 0.1% CR 15 GM TUBE EXT SCH (08:30)
[2021-08-27] MEDS: MELOXICAM 7.5 MG TAB PO SCH (08:30)
--- NOTE | 2021-08-27 10:23 | Orthopedic Progress Note ---
Date of Service August 27, 2021 Assessment & Plan (1) S/P total hip arthroplasty: Plan: Total hip precautions reviewed PT/OT Ice with easy wrap DVT prophylaxis with aspirin and JEREMY stockings Pain control control with p.o. medications Plan on in-home physical therapy for the first 2 weeks postoperatively Keep Silverlon dressing in place Abduction pillow use x6 weeks Weightbearing as tolerated with walker assistance Follow-up with [facility] orthopedics previously scheduled. With questions contact our clinic at [phone]. Admission and Anticipated Discharge Date Admission Date: August 26, 2021 Subjective This 66-year-old female is day 1 status post right total hip arthroplasty. Patient states she is doing very well. States she has minimal pain and feels it is well controlled with the p.o. pain medication. She denies numbness or tingling in her right lower extremity. She denies chest pain, shortness of breath, fever, chills, sweats, lethargy, nausea, vomiting or diarrhea. Review of Systems Review of Systems: All systems reviewed & are unremarkable except as noted in Subjective Physical Exam Physical Exam: Right hip: Patient is able to perform an active straight leg raise test. She is able to actively dorsi and plantarflex her foot. Quad strength is 4-5. Light passive hip flexion to 80 degrees causes no pain. Light passive internal and external rotation causes slight twinge of pain. Logroll test is negative. Patient is neurovascular intact right lower extremity. She easily transitions from a seated to a standing position with the aid of her walker. Results & Data ([facility]) Vital Signs (Past 12 Hours) Vital Signs Temp Pulse Pulse Resp BP Pulse Ox 08/27/21 07:30 36.7 C 66 11 L 148/78 H 95 08/27/21 03:41 36.7 C 78 18 109/66 96 08/26/21 23:25 36.5 C 64 16 107/66 91 Diagnostic Findings Laboratory Results WBC 10.71 K/uL (4.8-10.8) 08/27/21 05:26 RBC 3.59 M/uL (4.2-5.4) L 08/27/21 05:26 Hgb 10.4 g/dL (12.0-16.0) L 08/27/21 05:26 Hct 31.6 % (37-47) L 08/27/21 05:26 MCV 88.0 fL (80-100) 08/27/21 05:26 MCH 29.0 pg (25-34) 08/27/21 05:26 MCHC 32.9 g/dL (32-36) 08/27/21 05:26 RDW Std Deviation 44.2 fL (36.4-46.3) 08/27/21 05:26 RDW Coeff of Familia 13.7 % (11.5-14.5) 08/27/21 05:26 Plt Count 250 K/uL (130-400) 08/27/21 05:26 MPV 9.2 fL (7.4-10.4) 08/27/21 05:26 Immature Gran % (Auto) 0.2 % 08/27/21 05:26 Neut % (Auto) 76.4 % 08/27/21 05:26 Lymph % (Auto) 12.7 % 08/27/21 05:26 [place] % (Auto) 10.6 % 08/27/21 05:26 Eos % (Auto) 0.0 % 08/27/21 05:26 Baso % (Auto) 0.1 % 08/27/21 05:26 Neut # (Auto) 8.18 K/uL (1.4-6.5) H 08/27/21 05:26 Lymph # (Auto) 1.36 K/uL (1.2-3.4) 08/27/21 05:26 [place] # (Auto) 1.14 K/uL (0.11-0.59) H 08/27/21 05:26 Eos # (Auto) 0.00 K/uL (0-0.5) 08/27/21 05:26 Baso # (Auto) 0.01 K/uL (0-0.2) 08/27/21 05:26 Immature Gran # (Auto) 0.02 K/uL (0.00-0.02) 08/27/21 05:26 Sodium 138 mmol/L (136-145) 08/27/21 05:26 Potassium 4.6 mmol/L (3.5-5.1) 08/27/21 05:26 Chloride 106 mmol/L (98-107) 08/27/21 05:26 Carbon Dioxide 26 mmol/L (21-32) 08/27/21 05:26 Anion Gap 6 (3-11) 08/27/21 05:26 BUN 29 mg/dl (6-23) H 08/27/21 05:26 Creatinine 1.23 mg/dl (0.6-1.2) H 08/27/21 05:26 Est Cr Clr Drug Dosing 43.1 ml/min 08/27/21 05:26 Est GFR ( Amer) 53.3 ml/min 08/27/21 05:26 Est GFR (Non-Af Amer) 46.0 ml/min 08/27/21 05:26 BUN/Creatinine Ratio 23.6 (10-20) H 08/27/21 05:26 Glucose 115 mg/dl (70-99(Fasting)) H 08/27/21 05:26 POC Glucose 104 mg/dl (70-99) H 08/26/21 08:48 Calcium 9.5 mg/dl (8.5-10.1) 08/27/21 05:26 SARS-CoV-2, RNA, NAAT NEGATIVE (NEGATIVE) 08/26/21 Unknown Blood Type A Positive 08/18/21 11:36 Antibody Screen NEGATIVE 08/18/21 11:36 Impressions Pelvis X-Ray 08/26/21 08:48 XR pelvis 1-2V routine CLINICAL HISTORY: Post Surgical. COMPARISON STUDY: No previous studies for comparison. TECHNIQUE: [A single AP radiograph was obtained. FINDINGS: There is no evidence for an acute fracture. The patient is status post noncemented total hip prosthesis on the right. There is mild narrowing of the left hip joint space. The SI joints are intact bilaterally. The remaining visualized bones of the pelvis are intact. No focal soft tissue abnormalities identified. IMPRESSION: 1. Status post right total hip replacement. 2. Mild osteoarthritis of the left hip. ACT 112: Negative or not required by law. Electronically signed by: Piter Bauer M.D. 08/26/2021 9:17 AM
--- NOTE | 2021-08-27 10:24 | Discharge Summary ---
Date of Service August 27, 2021 Admission HPI Per Admitting Provider History of Present Illness (including history relevant to procedure): This 65-year-old female presents the clinic today for preoperative history and physical. Patient complains of bilateral hip pain for the past several years. She states her right bothers her much more than her left. She states that she has tried meloxicam Advil Tylenol. Has had multiple ultrasound-guided corticosteroid injections into her hip joints without relief. She has done extensive physical therapy and some home rehab and feels that her pain continues to become worse. She has difficulty going up or down stairs. She states that even putting on pants is sometimes difficult. Patient is ready to proceed with surgical intervention for hip osteoarthritis. Review Of Systems: A 12 point review of systems is performed and is unremarkable except for those things stated in the HPI and past medical history. Past Medical History: Problems: Degenerative joint disease of right hip Bilateral hip joint arthritis. Metatarsal fracture with malunion Injury of left foot Metatarsal fracture Status post surgery Internal jugular vein thrombosis Weight monitoring Preoperative state Anxiety depression Acne MIGRAINE Hypercholesterolemia HYPERTENSION Difficulty sleeping NECK PAIN Undiagnosed sleep apnea Diabetes Hypothyroidism History of renal calculi History of hepatitis B Procedure History Procedure Procedure Date Comments section: 89 & 92 Parathyroidectomy 2014 Kidney stones Operation 2010 & 2013 Lithotripsy 2013 Colonoscopy 2004 Cervical laminectomy 2002 Carpal tunnel release 2000 ACL - Right Reconstruction of anterior cruciate ligament 1994 Eye operation 1967 Reconstruction of facial bones 1967 Tonsillectomy 196 Allergies and Sensitivities: tetracycline(Rash) Social history: Patient denies tobacco or alcohol use. She states that she uses medical marijuana for her chronic pain. Family history: Cancer: MGF, Mother Diabetes mellitus: MGM Heart attack: PGF, PGM Heart disease: PGF, PGM Lung cancer......: Father Current Home Meds: (Last Updated 08/12 11:43) APAP/ASA/caffeine (Excedrin Migraine oral tablet) 2 tab PO ONCE PRN: as needed for headache DULoxetine (DULoxetine 30 mg oral delayed release capsule) 30 mg PO Daily amlodipine (amLODIPine 10 mg oral tablet) 10 mg PO qAM ascorbic acid (Vitamin C 500 mg oral capsule) 1 cap PO Daily aspirin 160 mg PO Daily atorvastatin (Lipitor 10 mg oral tablet) 10 mg PO qhs calcium and vitamin D combination 1 tab PO Daily cyclobenzaprine (Flexeril 10 mg oral tablet) 10 mg PO tid PRN: as needed for spasm diazePAM diclofenac topical (diclofenac 1% topical gel) 1 appl topical qid gabapentin (gabapentin 300 mg oral capsule) hydrochlorothiazide 25 mg PO Daily dose unknown daily - Lamar De Luna 01/19 12:46 lidocaine topical (Lidoderm 5% topical patch) topical Daily meloxicam (Mobic 15 mg oral tablet) 15 mg PO Daily metFORMIN (metformin) 500 mg PO Daily multivitamin 1 tab PO Daily multivitamin (B-Complex 50) polycarbophil (Fibertab) 1 tab PO Daily potassium chloride (potassium chloride 99 mg oral tablet) 99 mg PO Daily sumatriptan (Imitrex 100 mg oral tablet) 1 tab PO ONCE PRN: as needed for migraine headache trazodone (traZODone 50 mg oral tablet) 50 mg PO qhs PRN: sleep Initial Wt: 08/12 74.8 kg 165 lb Admission Exam Per Admitting Provider Physical Exam: (relevant to the procedure, including heart and lung evaluation) General: Alert and oriented x3 with proper grooming and hygiene Eyes: Pupils are equal and reactive to light with accommodation. Extraocular moods are intact Throat: Deferred due to COVID-19 precautions Cardiac: Regular rate and rhythm no murmurs or gallops appreciated Lungs: Clear to auscultation throughout with no wheezing, rales or rhonchi Abdomen: Mildly obese, nondistended, nontender with NABS Extremities: Right hip; flexion is limited to 90 degrees, external rotation to 50 degrees and internal rotation to 0 degrees. All of these positions cause referred pain to the groin. Straight leg raise test causes referred pain to the groin as the Stinchfield test. There is palpable crepitation with passive range of motion. Patient is neurovascularly intact in right lower extremity. She does walk with a slight antalgic gait. Neuro: Cranial nerves II through XII are intact with no motor or sensory deficit Skin: Normal in appearance with no open skin areas or discharge Principal Diagnosis Right hip osteoarthritis Discharge Exam Right hip: Patient is able to perform an active straight leg raise test. She is able to actively dorsi and plantarflex her foot. Quad strength is 4-5. Light p assive hip flexion to 80 degrees causes no pain. Light passive internal and external rotation causes slight twinge of pain. Logroll test is negative. Patient is neurovascular intact right lower extremity. She easily transitions from a seated to a standing position with the aid of her walker. Discharge Data Allergies Allergy/AdvReac Type Severity Reaction Status Date / Time tetracycline Allergy Mild Rash Verified 08/26/21 05:22 nickel Allergy Rash Verified 08/26/21 05:22 Penicillins Allergy Unknown Verified 08/26/21 05:22 steri-strips Allergy Rash Uncoded 08/26/21 05:22 Procedures Performed Operation Date: 08/26/21 07:00 Actual Procedures p Right Total Hip Arthroplasty(Right) - Tapan Quick MD Hospital Course (1) S/P total hip arthroplasty: Patient had an uneventful overnight stay. She is already worked with PT and OT this morning without issue. She is ready to be discharged home as soon as possible. We will plan on in-home physical therapy for the first 2 weeks postoperatively after she discusses this with case management this morning. Total hip precautions reviewed PT/OT Ice with easy wrap DVT prophylaxis with aspirin and JEREMY stockings Pain control control with p.o. medications Plan on in-home physical therapy for the first 2 weeks postoperatively Keep Silverlon dressing in place Abduction pillow use x6 weeks Weightbearing as tolerated with walker assistance Follow-up with [facility] orthopedics previously scheduled. With questions contact our clinic at [phone]. Total Time Total Time Spent Total Time Spent (In Minutes): 20 minutes Discharge Plan Discharge Items Patient Disposition: Home - Home Health Services Reason For Visit: Right Hip Osteoarthritis Discharge Diagnosis: Right Hip Osteoarthritis Activity: As commented below Lifting: None Bathing: Keep incision dry Bathing Comment: May shower tomorrow Sexual Activity: Wait until after follow-up appointment Exercise/Sports: Wait until after follow-up appointment Driving/Machine Use: No driving until cleared by grants specialist Weightbearing: Right weightbearing Weightbearing Comment: as tolerated with walker assistance Non-emergency contact: Surgeon Call non-emergency contact if: you have any medication questions, your pain is not controlled, your temperature is above 101.5, your wound has increased drainage and your wound pain has increased Follow-up/Referrals: Demetris Mcgarry MD [Primary Care Provider] - Diet: Regular Addtl Attending Provider Instructions: Post-operative Instructions Dear Patient and Family/Friends, Before you are discharged from the hospital, it is important to know what to ex pect when you get home after surgery. To that end, we have created this sheet of discharge instructions which covers many commonly asked questions. Make sure you go through this sheet in its entirety with your nurse before you are discharged. Please note that we will go over the specifics of your surgery and recovery when you return for your first post-operative visit. Sincerely, Dr. Quick Medications 1. Oxycodone 5 mg: take 1-2 tabs by mouth every 4-6 hrs as needed for pain. A prescription for 30 tabs will be sent to your pharmacy. 2. Meloxicam 15 mg: continue your daily dose of this medication for relief of pain/inflammation. 3. Aspirin 325 mg: take your daily full strength aspirin for blood clot prevention. 4. Extra Strength Tylenol 500 mg: take 2 tabs every 6-8 hrs as needed for additional pain relief. Pain Expect to be in a fair amount of pain after surgery. Remember, our goal is not to eliminate your pain, but to make it tolerable. It is a good idea to stay ahead of your pain by taking the medications you were prescribed once you get home. Typically, the pain starts improving 3-7 days after surgery. You should start weaning off the narcotic pain medication (oxycodone, hydrocodone, hydromorphone, morphine) as soon as your pain improves. Please call our office if your pain is not adequately controlled. Ice Ice your operative site at least 5 times a day for 15-30 minutes at a time. Make sure you have a thin cloth between the ice or cooling unit and your skin to prevent ruiz bite. This is especially important if you received a nerve block. Continue icing your operative site for the first 5-7 days after surgery, then as needed. Diet/Nausea/Vomiting Start by drinking clear liquids and eating crackers. If you can tolerate this, then you may resume your normal diet. If you feel nauseated or vomit, take Zofran/ondansetron (if prescribed). Please call our office if you have intractable nausea or vomiting, or, if after hours, you may go to the Emergency Room for help. Constipation Constipation is a common side effect of narcotic pain medication. If you have not had a bowel movement within 2 days after surgery, we recommend purchasing an over the counter laxative such as Milk of Magnesia, Dulcolax, or Miralax from a local pharmacy, and taking it as instructed. Call our clinic if any questions. Nerve block The anesthesia team sometimes places a nerve block to help with post-operative pain control. This results in significant numbness and inability to move the extremity. The nerve block usually wears off in 8-12 hours, but sometimes can last up to 24 hours. Please call our office if you are still unable to move your extremity after 24 hours, unless you received a pain pump to take home. Nerve blocks typically wear off quickly, so start taking pain medication as soon as you start feeling soreness near your surgical site. Weight bearing and Range of Motion. Do not bear any weight through your operative extremity immediately after surgery. If you had upper extremity surgery, do not lift anything with that arm. If you are in a knee brace, keep it locked in place until your follow-up. We will discuss your weight bearing, range of motion, and lifting restrictions in detail at your first post-operative appointment. Continuous Passive Motion (CPM) Machine If you were prescribed a CPM machine, it will start after your first post-operat rebecca appointment, at which time we will give you instructions on the range of motion settings and duration of treatment Physical therapy You will be given a prescription for physical therapy or occupational therapy at your first post-operative appointment. Typically, patients start therapy within 1 week of surgery Wound care and showering We will inspect your wound at your first post-operative visit, and may do a dressing change at that time. Most patients will be in a water-proof dressing that is removed 14 days after surgery. It is normal to see some dried blood on the dressing. Do not remove your dressing, paper strips or sutures yourself unless you are given permission. Showering is allowed the day after surgery. Do not scrub or remove any dressings. The wound should not be submerged underwater (i.e. in a bathtub or pool) until 4 weeks after surgery JEREMY stockings If you were given white stockings, these are to be worn at all times except to shower (on both legs) for the first 2 weeks after surgery. Driving You may not drive while taking narcotic pain medication or while in a cast, splint, sling or brace. You, the patient, need to make the final determination about when you are safe to drive, however, the earliest you may consider driving after surgery is below: Hand/Wrist/Elbow Surgery: 3 days Shoulder Surgery: 2 weeks Hip,/Knee/Ankle Surgery: 4 weeks Fracture repair: 6 weeks Return to Work Your return to work depends on what surgery was done and what type of work you do. Please bring any paperwork your employer needs completed to your first post-operative visit. Also, bring a description of your job duties, as this helps us to understand what risks you may face at work. Travel Avoid long distance travel (greater than 1 hour) in airplanes and cars for the first 6 weeks after surgery. If you must travel, you need to have a Doppler ultrasound done before you travel to rule out a blood clot in your legs. Follow-up You should have a follow-up appointment already scheduled 1-2 days after surgery. If not, please contact our office to make this appointment before you leave the hospital. When to call the office It is normal to have swelling and bruising in the limb that was operated on. This will improve with time. It is also normal to have fevers for the first 2 days after surgery. Reasons you should call your doctor include: Uncontrolled pain; Nausea, vomiting, or constipation that does not improve with medication; Fevers over 101.5, chills, sweats; Drainage or bleeding from the wound; Foul odor; Spreading areas of redness; Any other concerns Pending Studies at Discharge: No Stand-Alone Forms: [facility], Opioid Pain Management Medications and DC Order Prescriptions: New oxycodone 5 mg tablet 5 mg PO Q4H Qty: 30 RF: 0 Continued psyllium husk 0.52 gram capsule 0.52 g PO DAILY PRN (Reason: Constipation) RF: 0 diazepam 5 mg tablet 5 mg PO UD PRN (Reason: takes prior to flying) RF: 0 albuterol sulfate 90 mcg/actuation HFA aerosol inhaler 1 puff INH UD PRN (Reason: sob) RF: 0 gabapentin 300 mg capsule 300 mg PO TID RF: 0 lidocaine [Lidoderm] 5 % adhesive patch,medicated 1 patch transdermal UD PRN (Reason: Pain) RF: 0 trazodone 150 mg tablet 75 mg PO HS RF: 0 amlodipine 10 mg tablet 10 mg PO QAM RF: 0 ascorbic acid (vitamin C) 500 mg tablet 500 mg PO QAM RF: 0 sumatriptan succinate 100 mg tablet 100 mg PO UD PRN (Reason: migraines) RF: 0 aspirin 325 mg tablet 162.5 mg PO QAM RF: 0 atorvastatin 10 mg tablet 10 mg PO HS RF: 0 cyclobenzaprine 10 mg tablet 10 mg PO UD PRN (Reason: Muscle Spasm) RF: 0 duloxetine 60 mg PO HS RF: 0 potassium chloride 1 dose PO QAM RF: 0 multivitamin Tablet 1 tab PO QAM RF: 0 metformin 500 mg Tablet 500 mg PO BID RF: 0 meloxicam 15 mg Tablet 15 mg PO QAM RF: 0 vitamin B complex Capsule 1 cap PO QAM RF: 0 cholecalciferol (vitamin D3) [Vitamin D3] 125 mcg (5,000 unit) Tablet 125 mcg PO QAM RF: 0 turmeric 400 mg Capsule 400 mg PO QAM RF: 0 Glucosamine Chondroitin 550-30-1 mg Capsule 1 cap PO QAM RF: 0 [place] Topical Cream 1 dose topical DAILY RF: 0 Discharge Orders: Discharge Order (Routine); Ordered 08/27/21 Ordered By: Dwayne Keller/Other Patient Handouts: DVT Post Op Prevention, Understanding Hip Replacement, After Hip Replacement: Home Safety Admission Data Admit Date/Time: 08/26/21 08:48 Attending Provider: Tapan Quick Admit Provider: Tapan Quick Primary Care Provider: Demetris Mcgarry Other Interventions: Discharge Summary Assessment (RN) Last Done: 08/27/21 09:48
== END 2021-08-27 14:35 | disposition home health service (06) ==
LOC: ASU 04:58 → 3E 04:58

== ENCOUNTER 2021-10-28 05:06 | Observation (INO) ==
--- NOTE | 2021-10-12 09:51 | History & Physical Report ---
Date of Service October 12, 2021 Assessment & Plan (1) Osteoarthritis of left hip: Plan: PRE-OP Diagnosis: Left hip osteoarthritis Planned Procedure: Left total hip arthroplasty Plan: Patient is scheduled to undergo this procedure at [facility] with a 23-hour observation admission on October 28, [address] Tapan Buckner off. Risks and complications of the procedure such as: Infection, bleeding, pain, scarring, nerve or vessel damage, weakness, wound problems, stiffness, incomplete relief of symptoms, hardware failure, hardware loosening, wear, fracture, tendon or ligament injury, dislocation, leg length inequality, blood clots, embolism, heart attack, stroke and were explained the patient at her visit today. Informed consent to perform the procedure was obtained. Patient also understands risks of proceeding with surgical intervention during the COVID-19 pandemic. Currently she is asymptomatic and understands that she will need to be tested prior to surgery. Patient has an upcoming visit with her primary care provider Dr. Mcgarry on October 11 for clearance. She does not need to see PAT but will need her laboratory tests updated which include: A CBC with differential, complete metabolic panel, PT/INR, blood type and screen, urina lysis, urine culture and sensitivity, hemoglobin A1c and a nasal culture for MRSA. Patient states she will proceed to the hospital to obtain this testing front part for clinic today. She states she still has her total hip packet from the previous surgery. She has all of the equipment that she needs following surgery. She states that she is not going to do any type of in-home physical therapy for the first 2 weeks because she knows exactly what to do and she can do it on her own. She will consider formal physical therapy at the 2-week postoperative interval to work on both of her hips. Patient is scheduled for her 2-week postoperative follow-up with Surendra Truong on November 12 at 9:30 AM. If she has questions or concerns prior to her surgery, she will contact clinic. History of Present Illness Chief Complaint: Chief Complaint: Left hip pain Primary Care Provider: Demetris Mcgarry MD History of Present Illness (including history relevant to procedure): This 66-year-old female presents the clinic today for preoperative history and phy sical. Patient complains of bilateral hip pain for the past several years. She states her Right hip is doing great following her total hip arthroplasty performed on August 26 of this year. She states that her Left hip is really becoming bothersome. She states that is preventing her from doing the full extent of her rehab and would like to have it replaced so that she can rehabilitate to the fullest extent. She states that she has tried meloxicam Advil Tylenol. Has had multiple ultrasound-guided corticosteroid injections into her hip joints without relief. She has done extensive physical therapy and some home rehab and feels that her pain continues to become worse. She has difficulty going up or down stairs. She states that even putting on pants is sometimes difficult. Patient is ready to proceed with surgical intervention for hip osteoarthritis. Review Of Systems: 12 point review of systems is performed is unremarkable except for those things stated in the HPI past medical history. Past Medical History: Problems: Degenerative joint disease of right hip Bilateral hip joint arthritis. Metatarsal fracture with malunion Injury of left foot Metatarsal fracture Status post surgery Internal jugular vein thrombosis Weight monitoring Preoperative state Anxiety depression Acne MIGRAINE Hypercholesterolemia HYPERTENSION Difficulty sleeping NECK PAIN Procedure History Procedure Procedure Date Comments section: 89 & 92 Parathyroidectomy 2014 Kidney stones Operation 2010 & 2012 Lithotripsy 2013 Colonoscopy 2004 Cervical laminectomy 2001 Carpal tunnel release 1999 ACL - Right Reconstruction of anterior cruciate ligament 1994 Eye operation 1967 Reconstruction of facial bones 1967 Tonsillectomy Right total hip arthroplasty 1961 Allergies and Sensitivities: tetracycline(Rash) Social history: Patient denies tobacco or alcohol use. She states that she uses medical marijuana for her chronic pain. Family history: Cancer: MGF, Mother Diabetes mellitus: MGM Heart attack: PGF, PGM Heart disease: PGF, PGM Lung cancer......: Father Current Home Meds: (Last Updated 10/08 13:32) APAP/ASA/caffeine (Excedrin Migraine oral tablet) 2 tab PO ONCE PRN: as needed for headache DULoxetine (DULoxetine 30 mg oral delayed release capsule) 30 mg PO Daily amlodipine (amLODIPine 10 mg oral tablet) 10 mg PO qAM ascorbic acid (Vitamin C 500 mg oral capsule) 1 cap PO Daily aspirin 160 mg PO Daily atorvastatin (Lipitor 10 mg oral tablet) 10 mg PO qhs calcium and vitamin D combination 1 tab PO Daily cyclobenzaprine (Flexeril 10 mg oral tablet) 10 mg PO tid PRN: as needed for spasm diazePAM diclofenac topical (diclofenac 1% topical gel) 1 appl topical qid gabapentin (gabapentin 300 mg oral capsule) hydrochlorothiazide 25 mg PO Daily dose unknown daily - D De Luna 01/19 12:46 lidocaine topical (Lidoderm 5% topical patch) topical Daily meloxicam (Mobic 15 mg oral tablet) 15 mg PO Daily metFORMIN (metformin) 500 mg PO Daily multivitamin 1 tab PO Daily multivitamin (B-Complex 50) oxyCODONE (oxyCODONE 5 mg oral tablet) 5 mg PO q4h PRN: as needed for pain Maintenance RxPost op pain control. polycarbophil (Fibertab) 1 tab PO Daily potassium chloride (potassium chloride 99 mg oral tablet) 99 mg PO Daily sumatriptan (Imitrex 100 mg oral tablet) 1 tab PO ONCE PRN: as needed for migraine headache trazodone (traZODone 50 mg oral tablet) 50 mg PO qhs PRN: sleep Initial Wt: 10/08 76.4 kg 168 lb Allergies Allergy/AdvReac Type Severity Reaction Status Date / Time tetracycline Allergy Mild Rash Verified 08/26/21 05:22 nickel Allergy Rash Verified 08/26/21 05:22 Penicillins Allergy Unknown Verified 08/26/21 05:22 steri-strips Allergy Rash Uncoded 08/26/21 05:22 Home Medications Medication Instructions Recorded Confirmed Type albuterol sulfate 90 mcg/actuation 1 puff INH UD PRN 09/26/19 08/26/21 History aerosol inhaler amlodipine 10 mg tablet 10 mg PO QAM 09/26/19 08/26/21 History ascorbic acid (vitamin C) 500 mg 500 mg PO QAM 09/26/19 08/26/21 History tablet aspirin 325 mg tablet 162.5 mg PO QAM 09/26/19 08/26/21 History atorvastatin 10 mg tablet 10 mg PO HS 09/26/19 08/26/21 History cyclobenzaprine 10 mg tablet 10 mg PO UD PRN 09/26/19 08/26/21 History diazepam 5 mg tablet 5 mg PO UD PRN 09/26/19 08/26/21 History duloxetine 60 mg PO HS 09/26/19 08/26/21 History gabapentin 300 mg capsule 300 mg PO TID 09/26/19 08/26/21 History lidocaine 5 % topical patch 1 patch TRANSDERMAL UD PRN 09/26/19 08/26/21 History (Lidoderm) multivitamin 1 tab PO QAM 09/26/19 08/26/21 History potassium chloride 1 dose PO QAM 09/26/19 08/26/21 History psyllium husk 0.52 gram capsule 0.52 g PO DAILY PRN 09/26/19 08/26/21 History sumatriptan succinate 100 mg tablet 100 mg PO UD PRN 09/26/19 08/26/21 History trazodone 150 mg tablet 75 mg PO HS 09/26/19 08/26/21 History Elecon Topical Cream 1 dose TOPICAL DAILY 08/09/21 08/26/21 History cholecalciferol (vitamin D3) 125 125 mcg PO QAM 08/09/21 08/26/21 History mcg (5,000 unit) tablet (Vitamin D3) glucosamine sulf dipot 1 cap PO QAM 08/09/21 08/26/21 History chlr,msm,chond 550 mg-C 30 mg-isidro 1 mg capsule (Glucosamine Chondroitin) meloxicam 15 mg tablet 15 mg PO QAM 08/09/21 08/26/21 History metformin 500 mg tablet 500 mg PO BID 08/09/21 08/26/21 History turmeric 400 mg capsule 400 mg PO QAM 08/09/21 08/26/21 History vitamin B complex 1 cap PO QAM 08/09/21 08/26/21 History oxycodone 5 mg tablet 5 mg PO Q4H #30 tab 08/27/21 Rx Past Med/Surg History Medical History Abnormal ultrasound > 5 yrs ago; reports incidental finding on ultrasound of left neck/chest prior to parathyroidectomy. clot vs abnormal blood vessel--was monitored for several months [facility] and no changes. no available records per [facility]. Chronic pain DDD (degenerative disc disease) cervical and lumbar per pt Depression DM type 2 (diabetes mellitus, type 2) controlled, stable per pt GERD (gastroesophageal reflux disease) PRN OTC antacids History of anesthesia reaction woke up during facial surgery for left orbit fracture as a child History of cardiac murmur as a child denies detection in adulthood History of gastric ulcer History of hepatitis B History of migraine HLD (hyperlipidemia) HTN (hypertension) controlled, stable per pt Hypercalcemia Osteoarthritis Spinal stenosis Stage 3a chronic kidney disease (CKD) Suspected sleep apnea spouse has witnessed apnea Surgical History (Updated 08/27/21 @ 10:22 by Dwayne Bennett PA-C) H/O laminectomy cervical; limited ROM side to side H/O: section History of x2 History of carpal tunnel surgery of left wrist History of colonoscopy History of cystoscopy with stone extraction History of esophagogastroduodenoscopy (EGD) History of facial surgery left orbit fracture as a child History of lithotripsy History of parathyroidectomy History of repair of anterior cruciate ligament of right knee History of tonsillectomy Family History Mother Nephrolithiasis Other Cancer Hypertension No family history of adverse response to anesthesia Social History Smoking Status: Former smoker Second Hand Exposure: No; Hx Alcohol Use: No Hx Substance Use: Yes Last Used Substance: Unknown Substance Use Type Other:: medical marijuana Preferred Language: Kyrgyz Communication Ability: Effective Mechanical Test Engineer Required: No Beliefs That Will Affect Care: None Current Living Situation: Spouse Feels Safe at Home: Yes Assistive Devices: Walker Review of Systems All systems reviewed & are unremarkable except as noted in Subjective Physical Exam Physical Exam: Physical Exam: (relevant to the procedure, including heart and lung evaluation) General: Alert and oriented x3 with proper grooming and hygiene Eyes: Pupils are equal and react to light with accommodation. Extraocular movements are intact Throat: Deferred due to COVID-19 precautions Cardiac: Regular rate and rhythm with no murmurs or gallops appreciated Lungs: Clear to auscultation throughout with no wheezing, rales or rhonchi Abdomen: Mildly obese, nondistended, nontender with NABS Extremities: Left hip: flexion Is limited to 105 degrees. External rotation to 25 degrees, and Internal rotation is limited to 5 degrees. Logroll test is positive. Stinchfield test positive. Patient has tenderness to palpation over the groin. GREG test is positive with referred pain to the groin. There is crepitation with passive range of motion. Patient walks with an antalgic gait. Neuro: Cranial nerves II through XII are intact no motor or sensory deficit Skin: Normal appearance no open skin areas or discharge Results & Data ([facility]) Diagnostic Findings Studies (relevant to the procedure): X-rays done include standing AP pelvis and 2 views of each hip. These are compared with her prior films done back in June 2018. There has been interval loss of the superior joint space. She has now [id number] arthritis.
--- NOTE | 2021-10-22 10:24 | Anesthesiology Consultation ---
Date of Service October 22, 2021 Assessment & Plan (1) Encounter for pre-operative examination: - COVID screening: Per assessment on 10/21: No known COVID-19 positive contacts or current COVID-19 related symptoms. Travel screen negative. Patient vaccinate d. Surgeon arranging preop COVID testing. Awaiting results. - Check BSG AM DOS - PCP note (10/12/21): "YES" - patient medically cleared for surgery - S/P Right DEBBIE (10/24/21): SAB at L3-L4 (x2 attempts) at [facility] Chart Review Chart Review: Acceptable Risk for Surgery and Patient NOT seen in Pre Admission Testing Consults Requested none History Surgery Operation Date: 10/28/21 07:00 Proposed Procedures p Left Total Hip Arthroplasty - Tapan Quick MD Height/Weight Height: 5 ft 2 in Weight: 74.5 kg Allergies Allergy/AdvReac Type Severity Reaction Status Date / Time tetracycline Allergy Mild Rash Verified 10/21/21 16:26 nickel Allergy Rash Verified 10/21/21 16:26 Penicillins Allergy Unknown Verified 10/21/21 16:26 steri-strips Allergy Rash Uncoded 10/21/21 16:26 Medications Home Medications Medication Instructions Recorded Confirmed Last Taken albuterol sulfate 90 mcg/actuation 1 puff INH UD PRN 09/26/19 10/21/21 08/26/20 aerosol inhaler amlodipine 10 mg tablet 10 mg PO QAM 09/26/19 10/21/21 08/26/21 04:30 ascorbic acid (vitamin C) 500 mg 500 mg PO QAM 09/26/19 10/21/21 08/19/21 tablet aspirin 325 mg tablet 162.5 mg PO QAM 09/26/19 10/21/21 08/19/21 atorvastatin 10 mg tablet 10 mg PO HS 09/26/19 10/21/21 08/25/21 21:00 cyclobenzaprine 10 mg tablet 10 mg PO UD PRN 09/26/19 10/21/21 08/12/21 diazepam 5 mg tablet 5 mg PO UD PRN 09/26/19 10/21/21 07/31/19 duloxetine 60 mg PO HS 09/26/19 10/21/21 08/25/21 21:00 gabapentin 300 mg capsule 300 mg PO TID 09/26/19 10/21/21 08/26/21 04:30 lidocaine 5 % topical patch 1 patch TRANSDERMAL UD PRN 09/26/19 10/21/21 08/19/21 (Lidoderm) multivitamin 1 tab PO QAM 09/26/19 10/21/21 08/25/21 10:00 potassium chloride 1 dose PO QAM 09/26/19 10/21/21 08/25/21 10:00 psyllium husk 0.52 gram capsule 0.52 g PO DAILY PRN 09/26/19 10/21/21 08/25/21 10:00 sumatriptan succinate 100 mg tablet 100 mg PO UD PRN 09/26/19 10/21/21 08/26/21 04:30 trazodone 150 mg tablet 75 mg PO HS 09/26/19 10/21/21 08/25/21 23:00 Elecon Topical Cream 1 dose TOPICAL DAILY 08/09/21 10/21/21 08/19/21 cholecalciferol (vitamin D3) 125 125 mcg PO QAM 08/09/21 10/21/21 08/25/21 10:00 mcg (5,000 unit) tablet (Vitamin D3) glucosamine sulf dipot 1 cap PO QAM 08/09/21 10/21/21 08/12/21 chlr,msm,chond 550 mg-C 30 mg-isidro 1 mg capsule (Glucosamine Chondroitin) meloxicam 15 mg tablet 15 mg PO QAM 08/09/21 10/21/21 08/19/21 metformin 500 mg tablet 500 mg PO BID 08/09/21 10/21/21 08/25/21 10:00 turmeric 400 mg capsule 400 mg PO QAM 08/09/21 10/21/21 08/12/21 vitamin B complex 1 cap PO QAM 08/09/21 10/21/21 08/25/21 10:00 oxycodone 5 mg tablet 5 mg PO Q4H #30 tab 08/27/21 10/21/21 Unknown Past Medical History Medical History Abnormal ultrasound > 5 yrs ago; reports incidental finding on ultrasound of left neck/chest prior to parathyroidectomy. clot vs abnormal blood vessel--was monitored for several months [facility] and no changes. no available records per [facility]. Chronic pain DDD (degenerative disc disease) cervical and lumbar per pt Depression DM type 2 (diabetes mellitus, type 2) GERD (gastroesophageal reflux disease) PRN OTC antacids History of cardiac murmur as a child denies detection in adulthood History of gastric ulcer History of hepatitis B History of migraine HLD (hyperlipidemia) HTN (hypertension) controlled, stable per pt Osteoarthritis Spinal stenosis Stage 3a chronic kidney disease (CKD) Suspected sleep apnea spouse has witnessed apneic events Past Family History Family History Mother Nephrolithiasis Other Cancer Hypertension No family history of adverse response to anesthesia Past Surgical History Surgical History H/O laminectomy cervical; limited ROM side to side H/O: section History of anesthesia reaction woke up during facial surgery for left orbit fracture as a child History of x2 History of carpal tunnel surgery of left wrist History of colonoscopy History of cystoscopy with stone extraction History of esophagogastroduodenoscopy (EGD) History of facial surgery left orbit fracture as a child History of lithotripsy History of parathyroidectomy History of repair of anterior cruciate ligament of right knee History of tonsillectomy History of total right hip arthroplasty Social History Smoking Status: Former smoker Do You Dip or Chew Tobacco: No Hx Alcohol Use: No Hx Substance Use: Yes substance use type: marijuana Substance Use Type Other:: medical marijuana Last Used Substance: Unknown Lab Results Anesthesia Preop Results Results Anesthesia Widget: WBC 8.16 K/uL (4.8-10.8) 10/08/21 Hgb 13.1 g/dL (12.0-16.0) 10/08/21 Hct 39.3 % (37-47) 10/08/21 Plt 373 K/uL (130-400) 10/08/21 Na 139 mmol/L (136-145) 10/08/21 K 3.9 mmol/L (3.5-5.1) 10/08/21 Cl 103 mmol/L (98-107) 10/08/21 CO2 26 mmol/L (21-32) 10/08/21 BUN 25 mg/dl (6-23) H 10/08/21 Creat 1.03 mg/dl (0.6-1.2) 10/08/21 Glucose Level 82 mg/dl (70-99(Fasting)) 10/08/21 PT 10.5 Seconds (9.0-12.0) 10/08/21 INR 1.0 (0.9-1.1) 10/08/21 HA1c 5.6 % (4.5-5.6) 10/08/21 Urine Color Dark Yellow 10/08/21 Urine Appearance Cloudy (Clear) A 10/08/21 Urine pH 5.0 (4.5-7.5) 10/08/21 Urine Specific [place] 1.034 (1.000-1.030) H 10/08/21 Urine Protein Trace (Negative) H 10/08/21 Urine Glucose (UA) Negative (Negative) 10/08/21 Urine Ketones 1+ (Negative) H 10/08/21 Urine Blood Negative (Negative) 10/08/21 Urine Nitrite Negative (Negative) 10/08/21 Urine Bilirubin Negative (Negative) 10/08/21 Urine Urobilinogen Negative (Negative) 10/08/21 Urine Leukocyte Esterase Negative (Negative) 10/08/21 Urine WBC (Auto) 1-5 /hpf (0-5) 10/08/21 Urine RBC (Auto) 0-4 /hpf (0-4) 10/08/21 Urine Hyaline Casts (Auto) 1-5 /lpf (0-5) 10/08/21 Urine Epithelial Cells (Auto) >30 /lpf (0-5) H 10/08/21 Urine Bacteria (Auto) Negative (Negative) 10/08/21 Testing Electrocardiogram Date: 08/12/21 Findings: + NSR @ (01)
[2021-10-28] MEDS ORDERED: ceFAZolin 2000MG 2,000 MG/15 ML SYR IV SCH (06:00)
[2021-10-28] MEDS ORDERED: dexAMETHasone 4 MG TAB PO SCH (06:00)
[2021-10-28] MEDS ORDERED: traMADol HCL 50 MG TABLET PO SCH (06:00)
[2021-10-28] MEDS ORDERED: LR 500ML BOLUS, THEN 15ML/HR IV SCH (06:00)
[2021-10-28] MEDS ORDERED: CeleBREX 200 MG CAP PO SCH (06:00)
[2021-10-28] MEDS ORDERED: Scopolamine 1 MG TDSY TD SCH (06:00)
[2021-10-28] MEDS ORDERED: LR 60ML/HR IV SCH (06:00)
[2021-10-28] MEDS ORDERED: ROPIVACAINE 0.5% HCL/PF 150 MG, BUPIVACAINE 0.75% MPF 20 ML, EPINEPHrine 0.15 MG, Ketor... INFIL SCH (06:00)
[2021-10-28] MEDS ORDERED: FAMOTIDINE 20 MG TAB PO SCH (06:00)
[2021-10-28] MEDS ORDERED: ACETAMINOPHEN 500 MG TAB PO SCH (06:00)
[2021-10-28] MEDS ORDERED: TRANEXAMIC ACID 1,000 MG **IV Pre-op IV SCH (06:00)
[2021-10-28] MEDS ORDERED: TRANEXAMIC ACID 1,000 MG **IV Intra-op IV SCH (06:00)
[2021-10-28] MEDS ORDERED: BUPIVACAINE 0.5 % 5 MG/1 ML PF 10ML VIAL ONE (06:23)
--- NOTE | 2021-10-28 06:36 | History & Physical Bridge Note ---
Date of Service October 28, 2021 History & Physical Bridge Note I have examined the patient, reviewed the History & Physical and in the interval since the performance of the History & Physical I have noted the following changes of clinical significance: no changes noted
[2021-10-28] MEDS ORDERED: ORTHO JOINT ANESTHETIC ONE (06:37)
[2021-10-28] MEDS ORDERED: MIDAZOLAM HCL 1 MG/ML 2ML VIAL ONE ×2 (06:42→07:21)
[2021-10-28] MEDS ORDERED: PROPOFOL IV EMULSION 10 MG/ML 20 ML VIAL IV ONE (06:42)
[2021-10-28] MEDS ORDERED: LIDOCAINE 2% 2 ML VIAL/AMP(20MG/ML) INFIL ONE (06:42)
[2021-10-28] MEDS ORDERED: GLYCOPYRROLATE 0.2 MG/ML VIAL ONE (07:21)
[2021-10-28] MEDS ORDERED: KETAMINE 50 MG/5 ML SYRINGE ONE (07:22)
[2021-10-28] MEDS ORDERED: PHENYLEPHRINE 100MCG/ML 5ML SYR ONE (07:40)
[2021-10-28] MEDS ORDERED: ePHEDrine sulfate 50 MG/ML SYR ONE (07:40)
[2021-10-28] MEDS ORDERED: HYDROmorphone INJ 1 MG/ML SYRINGE IV PRN (08:10)
[2021-10-28] MEDS ORDERED: fentaNYL citrate 100 MCG/2 ML VIAL IV PRN (08:10)
[2021-10-28] MEDS ORDERED: ePHEDrine sulfate 50 MG/ML AMP IV PRN (08:10)
[2021-10-28] MEDS ORDERED: ONDANSETRON INJ 2 MG/ML 2 ML VIAL IV PRN ×2 (08:10→08:57)
[2021-10-28] MEDS ORDERED: PROMETHAZINE HCL 12.5 MG in SODIUM CHLORIDE 0.9% 50 ML IV PRN (08:10)
[2021-10-28] MEDS ORDERED: NALOXONE HCL 0.4 MG/1 ML VIAL/CARP IV PRN ×2 (08:10→08:57)
[2021-10-28] MEDS ORDERED: ATROPINE SULFATE 0.1 MG/ML 10ML SYR IV PRN (08:10)
[2021-10-28] MEDS ORDERED: FLUMAZENIL 0.1 MG/1 ML 10 ML VIAL IV PRN (08:10)
--- NOTE | 2021-10-28 08:39 | Operative Report ---
Post Operative Report Pre & Post Diagnosis Operation Date: 10/28/21 07:00 Pre-Op Diagnosis: Left Hip Osteoarthritis Post-Op Diagnosis: Left Hip Osteoarthritis I identified the patient and participated in the time-out.: Yes Procedure Operation Date: 10/28/21 07:00 Actual Procedures p Left Total Hip Arthroplasty(Left) - Tapan Quick MD Surgeon Tapan Quick MD Facing Grinder Johanna Pickett MD and ULISES Bennett PA-C. Estimated Blood Loss 100 Findings Consistent with Post-Op Diagnosis Specimens Left femoral head Anesthesia Type Spinal MAC Complications none Disposition Disposition: Recovery Room Indications 66-year-old female with left hip osteoarthritis refractory to conservative management. X-rays demonstrate cyua-et-cwkw disease. She has previously undergone a right total hip arthroplasty by myself with a good result. I had a long discussion with her about the risks and benefits of surgery alternatives and expected outcomes. She elected to proceed. Informed consent was signed. Description of Procedure Patient was identified in the preoperative holding area and the surgical site, left hip, was marked. A spinal anesthetic was placed, then the patient was brought back to the main operating room, placed in the operating table and moved into the lateral decubitus position. Axillary roll was placed. All bony prominences were padded. Perioperative antibiotics and tranexamic acid 1 gram IV were administered. Operative extremity was prepped and draped in the normal sterile fashion. Prior to incision a multidisciplinary timeout was called. All in the room were in agreement. We began by making an incision for a posterior approach to the hip. We dissected down through subcutaneous tissues to the level of the fascia. The fascia was incised in line with the incision. Charnley bow was placed. The trochanteric bursa was excised. The piriformis and short external rotators were dissected off the posterior aspect of the hip. A box cut was made in the ca psule. The femoral head was dislocated. The femoral neck cut was made at our preoperative template. The acetabulum was then exposed. The labrum was sharply excised. Contents of the cotyloid fossa were removed with electrocautery. We then began reaming at a size 8 mm less than our preoperative template. We reamed up by [address] the way up to a size 54 mm cup. This gave us good bleeding cancellus bone circumferentially. The acetabulum was then irrigated out and dried. The real Yeaddiss Gription cup was then impacted down into position with 45 degrees of lateral opening and 25 degrees of anteversion. A single cancellous bone screw was placed up into the ilium. Excellent fixation was obtained. An Altrx polyethylene liner for a 36 mm femoral head was then impacted into the shell. The locking mechanism was checked to ensure that it had engaged which it had. Next we turned our attention to the femur. The lateral neck was removed with a box osteotome. Intramedullary guide was used followed by the lateralizing reamer. We then reamed up to a size 5 Borden stem. We then broached all the way up to a size 4. We began trialing with a standard offset neck and a +5 h ead. Hip was reduced. Leg lengths were symmetric. The hip was stable in extension and external rotation, and stable in the sleeper position. At 90 degrees of hip flexion the hip could be internally rotated 75 degrees before levering out of the cup. I was very happy with the stability exam. Therefore the hip was dislocated and the femoral trial was removed. The femoral canal was irrigated and dried. The real size 4 standard offset Borden femoral stem was opened up. This was impacted down into position. It sat about 2 mm more prominent than the femoral trial. Therefore I decreased the offset of her femoral head to 1.5 mm and the 36 mm femoral head with a 1.5 mm offset was opened up and gently impacted down onto the trunnion. The hip was atraumatically reduced. Another 1 gram of IV tranexamic acid was started prior to closure. The wound was irrigated out with sterile Betadine solution. The periarticular injection cocktail was then placed. The short external rotators, piriformis, and posterior capsule were repaired through drill holes in the greater trochanter using #2 Vicryl. The fascia was run with a looped #1 PDS. The subcutaneous layer was closed with #1 PDS. The dermal layer was closed with 2-0 Vicryl. Zip line was used for the skin followed by a Silverlon dressing. A compressive dressing was then placed. The patient was then rolled supine. Leg lengths were rechecked and were symmetric. An abduction pillow was placed. Sedation was lifted and the patient was transferred to recovery room in stable condition. Summary of implants: Depuy Yeaddiss Gription Acetabular Shell Sector Cup, 54 mm outer diameter Yeaddiss Cancellous bone screw, 6.5 x 30 mm Yeaddiss Altrx Polyethylene Acetabular Liner, Neutral, with a 36 mm inner diameter DePuy Borden Femoral stem with Porocoat, 12/14 taper, size 4 standard offset 36 mm ceramic femoral head with +1.5 offset Postoperative course: Patient will be admitted to the hospital from the recovery room. Patient will be weightbearing as tolerated with posterior hip precautions. Aspirin for DVT prophylaxis I attest to the content of the Intraoperative Record and any orders documented therein. Any exceptions are noted below.
[2021-10-28] MEDS ORDERED: METOCLOPRAMIDE HCL INJ 5 MG/ML 2 ML VIAL IV PRN (08:57)
[2021-10-28] MEDS ORDERED: PHARMACY GLYCEMIC MGMT CONSULT PRN (08:57)
[2021-10-28] MEDS ORDERED: bisacodyL 10 MG SUPP PR PRN (08:57)
[2021-10-28] MEDS ORDERED: diphenhydrAMINE 50 MG/ML VIAL IV PRN (08:57)
[2021-10-28] MEDS ORDERED: ALUMINUM/MAGNESIUM SUSP 30 ML UDC PO PRN (08:57)
[2021-10-28] MEDS ORDERED: MAGNESIUM HYDROXIDE SUSP 30 ML UDC PO PRN (08:57)
--- NOTE | 2021-10-28 08:57 | Operative Report ---
Post Operative Report Pre & Post Diagnosis Operation Date: 10/28/21 07:00 Pre-Op Diagnosis: Left Hip Osteoarthritis Post-Op Diagnosis: Left Hip Osteoarthritis I identified the patient and participated in the time-out.: Yes Procedure Operation Date: 10/28/21 07:00 Actual Procedures p Left Total Hip Arthroplasty(Left) - Tapan Quick MD Surgeon Mick Quick MD Mobility Specialist Johanna Pickett MD and ULISES Bennett PA-C. Estimated Blood Loss 100 Findings Consistent with Post-Op Diagnosis Consistent with post op diagnosis Specimens No specimens Description of Procedure I participated in prepping dressing and assisted Dr. Quick during the procedure. Please see Dr. Quick note I attest to the content of the Intraoperative Record and any orders documented therein. Any exceptions are noted below. Supervising Physician Co-Signing Physician Notes Dr. Quick
--- NOTE | 2021-10-28 08:57 | Operative Report ---
Post Operative Report Pre & Post Diagnosis Operation Date: 10/28/21 07:00 Pre-Op Diagnosis: Left Hip Osteoarthritis Post-Op Diagnosis: Left Hip Osteoarthritis I identified the patient and participated in the time-out.: Yes Procedure Operation Date: 10/28/21 07:00 Actual Procedures p Left Total Hip Arthroplasty(Left) - Tapan Quick MD Surgeon Tapan Quick MD [employer] Johanna Pickett MD and ULISES Bennett PA-C. Estimated Blood Loss 100 Findings Consistent with Post-Op Diagnosis Specimens femoral head Description of Procedure I was present during the entire procedure assisting with positioning, prepping, draping, wound retraction, wound closure, dressing and abduction pillow placement. Fellow also present. I served as an extra set of hands during the case. Please see Dr. Quick procedure note for specifics. I attest to the content of the Intraoperative Record and any orders documented therein. Any exceptions are noted below.
[2021-10-28] MEDS ORDERED: SODIUM CHLORIDE 0.9% 1000ML 1,000 ML IV SCH (09:00)
[2021-10-28] MEDS ORDERED: CYCLOBENZAPRINE HCL 10 MG TAB PO PRN (09:02)
[2021-10-28] MEDS ORDERED: LIDOCAINE 5% 1 PATCH TD PRN (09:02)
[2021-10-28] MEDS ORDERED: SUMAtriptan succinate 100 MG TAB PO PRN (09:02)
[2021-10-28] MEDS ORDERED: diazePAM 5 MG TABLET PO PRN (09:02)
[2021-10-28] MEDS ORDERED: ALBUTEROL HFA 8 GM INHALER INH PRN (09:02)
[2021-10-28] MEDS ORDERED: oxyCODONE HCL IR 5 MG TAB (IMMEDIATE RELEASE) PO SCH (09:15)
--- NOTE | 2021-10-28 09:30 | Anesthesiology Progress Note ---
Date of Service October 28, 2021 Anesthesia Post Procedure Vital Signs Vital Signs: Temp Pulse Pulse Resp BP BP Pulse Ox 10/28/21 09:25 78 14 112/61 98 10/28/21 09:15 72 18 121/58 L 100 10/28/21 09:05 73 12 108/60 100 10/28/21 08:59 36.8 C 82 16 109/57 L 99 10/28/21 05:39 36.9 C 73 18 160/86 H 98 Pain Intensity Left Hip: Pain Intensity: 6 Transfer of Care Handoff Completed per policy Notes Mental Status: alert / awake / arousable Patient Amnestic to Procedure: Yes Nausea / Vomiting: adequately controlled Pain: adequately controlled Airway Patency, RR, SpO2: stable & adequate BP & HR: stable & adequate Hydration State: stable & adequate Neuraxial Anesthesia: was administered and sensory block is resolving Anesthetic Complications: no major complications apparent
[2021-10-28] MEDS ORDERED: GLUCAGON FOR INJ 1 MG VIAL IM PRN (10:30)
[2021-10-28] MEDS ORDERED: CARBOHYDRATES FOR HYPOGLYCEMIA PO PRN (10:30)
[2021-10-28] MEDS ORDERED: GLUCOSE 10 TABS/TUBE PO PRN (10:30)
[2021-10-28] MEDS ORDERED: DEXTROSE 50% 50 ML SYRINGE IV PRN (10:30)
[2021-10-28] MEDS ORDERED: GLUCOSE 40% GEL 15 GM TUBE PO PRN (10:30)
[2021-10-28] MEDS ORDERED: PSYLLIUM or GUAR GUM FIBER POWDER PACKET PO PRN (10:41)
[2021-10-28] MEDS: INSULIN ASPART PER UNIT SC SCH ×4 (10:46→21:47)
[2021-10-28] MEDS: MULTIVITAMIN TAB PO SCH (11:25)
[2021-10-28] MEDS: DOCUSATE SODIUM 100 MG CAP PO SCH ×2 (11:25→21:41)
--- NOTE | 2021-10-28 11:36 | XRay Report ---
XR pelvis 1-2V routine CLINICAL HISTORY: Post Surgical TECHNIQUE: A single frontal view of the pelvis was obtained. Comparison: Comparison is made to hip and pelvis radiograph FINDINGS: Patient is status post placement of a left total hip arthroplasty. Stable right hip arthroplasty. Sub cutaneous emphysema on the right is compatible with postoperative subcutaneous emphysema. IMPRESSION: Expected postoperative appearance status post placement of total hip arthroplasty. ACT 112: Negative or not required by law. Electronically signed by: Curtis Deal M.D. 10/28/2021 11:34 AM
[2021-10-28] MEDS: ACETAMINOPHEN 500 MG TAB PO SCH ×2 (13:04→21:41)
[2021-10-28] MEDS: GABAPENTIN 300 MG CAP PO SCH ×2 (13:04→21:41)
--- NOTE | 2021-10-28 14:16 | Pharmacy Report ---
Pharmacy Glycemic Short Note 2 - Date of Service October 28, 2021 - Glycemic Short BSG Results (Last 24 hours): 10/28/21 10/28/21 10/28/21 05:26 10:44 12:10 POC Glucose 107 H 125 H 214 H OUTPATIENT ANTIDIABETIC REGIMEN: * metformin 500 mg BID * HbA1C = 5.6% (10/08/21) ASSESSMENT: * Ms Lamb is a 66 y/o F with a PMH of T2DM well controlled on metformin who presents for L hip surgery. * BSGs pre-op were 107-125 mg/dL and post-op was 214 mg/dL. Per the patient, she had uncovered toast and bananas. * Weight-based Novolog stress of 2. Hold off on basal insulin for now. PLAN FOR INPATIENT GLYCEMIC CONTROL: * Hold outpatient oral diabetes medications * Basal insulin * hold for now * Bolus insulin * NovoLog per scale ACHS or Q6hrs while NPO * Goal Range: Low 110 mg/dL - High 140 mg/dL * Correction Factor: 25 mg/dL/unit * Nutritional / Prandial insulin per carb ratio of 1 unit per 8 grams CHO consumed
[2021-10-28] MEDS ORDERED: TRANEXAMIC ACID / 0.7% NACL 1,000 MG/100 ML BAG IV SCH (15:00)
[2021-10-28] MEDS: ceFAZolin 2000MG 2,000 MG/15 ML SYR IV SCH ×2 (15:29→23:44)
[2021-10-28] MEDS: oxyCODONE HCL IR 5 MG TAB (IMMEDIATE RELEASE) PO PRN ×2 (15:29→19:43)
[2021-10-28] MEDS: Scopolamine CHECK PATCH PLACEMENT SCH ×2 (15:30→23:45)
[2021-10-28] MEDS: KETOROLAC TROMETHAMINE 15 MG/ML VIAL IV SCH ×2 (17:37→23:44)
[2021-10-28] MEDS ORDERED: traZODone HCL 50 MG TAB PO SCH (21:00)
[2021-10-28] MEDS ORDERED: ATORVASTATIN 10 MG TAB PO SCH (21:00)
[2021-10-28] MEDS ORDERED: DULoxetine HCL 60 MG CAP PO SCH (21:00)
[2021-10-28] MEDS ORDERED: SENNA 8.6 MG TAB PO SCH (21:00)
[2021-10-28] MEDS ORDERED: metFORMIN HCL 500 MG TAB PO SCH (21:00)
[2021-10-29] MEDS: ACETAMINOPHEN 500 MG TAB PO SCH (06:13)
[2021-10-29] MEDS: KETOROLAC TROMETHAMINE 15 MG/ML VIAL IV SCH (06:14)
[2021-10-29 06:25] LABS: Hemoglobin 9.6 g/dL (12.0-16.0); Immature Granulocytes # (auto) 0.01 K/uL (0.00-0.02); Immature Granulocytes % (auto) 0.1 %; Lymphocytes # (auto) 1.44 K/uL (1.2-3.4); Lymphocytes % (auto) 15.4 %; Mean Corpuscular Hemoglobin 28.7 pg (25-34); Mean Corpuscular Hgb Conc 33.1 g/dL (32-36); Mean Corpuscular Volume 86.8 fL (80-100); Mean Platelet Volume 9.3 fL (7.4-10.4); Monocytes # (auto) 1.12 K/uL (0.11-0.59); Neutrophils # (auto) 6.77 K/uL (1.4-6.5); Neutrophils % (auto) 72.5 %; Platelet Count 254 K/uL (130-400); RDW Coefficient of Variation 14.1 % (11.5-14.5); RDW Standard Deviation 44.9 fL (36.4-46.3); Red Blood Count 3.34 M/uL (4.2-5.4); White Blood Count 9.34 K/uL (4.8-10.8)
[2021-10-29 06:51] LABS: BUN Creatinine Ratio 19.1 (10-20); Calcium 9.5 mg/dl (8.5-10.1); Creatinine Clr Calc Pharmacy 38.9 ml/min; Est GFR (African American) 47.2 ml/min; Est GFR (Non-African American) 40.7 ml/min; Potassium 4.4 mmol/L (3.5-5.1)
[2021-10-29] MEDS: Scopolamine CHECK PATCH PLACEMENT SCH (07:47)
[2021-10-29] MEDS: GABAPENTIN 300 MG CAP PO SCH (07:47)
[2021-10-29] MEDS: DOCUSATE SODIUM 100 MG CAP PO SCH (07:48)
[2021-10-29] MEDS: MULTIVITAMIN TAB PO SCH (07:48)
[2021-10-29] MEDS: oxyCODONE HCL IR 5 MG TAB (IMMEDIATE RELEASE) PO PRN (07:53)
[2021-10-29] MEDS: INSULIN ASPART PER UNIT SC SCH (08:44)
[2021-10-29] MEDS ORDERED: ASCORBIC ACID 500 MG TAB PO SCH (09:00)
[2021-10-29] MEDS ORDERED: CHOLECALCIFEROL 5,000 UNITS 125 MCG TAB PO SCH (09:00)
[2021-10-29] MEDS ORDERED: VITAMIN B COMPLEX TAB PO SCH (09:00)
[2021-10-29] MEDS ORDERED: NON-FORMULARY MEDICATION (Turmeric 400 mg Capsule) PO SCH (09:00)
[2021-10-29] MEDS ORDERED: [UNRECOGNIZED DRUG - OTHER] TOP SCH (09:00)
[2021-10-29] MEDS ORDERED: NON-FORMULARY MEDICATION (Glucos Sul 2kcl-Msm-Chond-C-Mn [Glucosamine Chondroitin] 550-30- PO SCH (09:00)
[2021-10-29] MEDS ORDERED: NON-FORMULARY MEDICATION (Multivitamin tablet) PO SCH (09:00)
[2021-10-29] MEDS ORDERED: MELOXICAM 7.5 MG TAB PO SCH (09:00)
[2021-10-29] MEDS ORDERED: amLODIPine BESYLATE 5 MG TAB PO SCH (09:00)
[2021-10-29] MEDS ORDERED: ASPIRIN 325 MG ECTAB PO SCH ×2 (09:00)
[2021-10-29] MEDS ORDERED: POTASSIUM CHLORIDE PO SCH (09:00)
--- NOTE | 2021-10-29 09:37 | Orthopedic Progress Note ---
Date of Service October 29, 2021 Assessment & Plan (1) S/P total hip arthroplasty: Plan: Total hip precautions reviewed PT/OT DVT prophylaxis with aspirin and JEREMY stockings Pain control with p.o. medication Ice with easy wrap Abduction pillow use for 6 weeks postoperatively Weightbearing as tolerated with walker assistance Keep Silverlon dressing in place Plan on discharge home today Follow-up at [facility] orthopedics as previously scheduled With questions contact our clinic at [phone] Admission and Anticipated Discharge Date Admission Date: October 28, 2021 Subjective This 66-year-old Female is day 1 status post left total hip arthroplasty. Patient states she is doing very well. She states her pain is well controlled with p.o. pain medication. She is very anxious to be discharged home later this morning. Currently she denies chest pain, shortness of breath, fever, chills, sweats, lethargy, numbness or tingling in left lower extremity. She also denies nausea, vomiting, diarrhea and states that she has been able to void without issue. Review of Systems Review of Systems: All systems reviewed & are unremarkable except as noted in Subjective Physical Exam Physical Exam: Left hip: Outer dressing was removed. Silverlon Is clean dry and intact. Patient is able to perform an active straight leg raise test without difficulty. She is able to actively dorsi and plantarflex her foot without issue. Logroll test negative. Quad strength is 4 out of 5. Patient experiences some slight tension with light passive internal rotation. She has no pain with passive external rotation. She is neurovascularly intact in the left lower extremity. Results & Data ([facility]) Vital Signs (Past 12 Hours) Vital Signs Temp Pulse Pulse Resp BP Pulse Ox 10/29/21 07:40 36.8 C 64 20 148/64 H 97 10/29/21 07:17 36.7 C 67 18 130/61 95 10/29/21 04:00 36.8 C 82 20 116/72 96 10/28/21 23:00 37 C 72 20 115/65 92 Diagnostic Findings Laboratory Results WBC 9.34 K/uL (4.8-10.8) 10/29/21 05:56 RBC 3.34 M/uL (4.2-5.4) L 10/29/21 05:56 Hgb 9.6 g/dL (12.0-16.0) L 10/29/21 05:56 Hct 29.0 % (37-47) L 10/29/21 05:56 MCV 86.8 fL (80-100) 10/29/21 05:56 MCH 28.7 pg (25-34) 10/29/21 05:56 MCHC 33.1 g/dL (32-36) 10/29/21 05:56 RDW Std Deviation 44.9 fL (36.4-46.3) 10/29/21 05:56 RDW Coeff of Familia 14.1 % (11.5-14.5) 10/29/21 05:56 Plt Count 254 K/uL (130-400) 10/29/21 05:56 MPV 9.3 fL (7.4-10.4) 10/29/21 05:56 Immature Gran % (Auto) 0.1 % 10/29/21 05:56 Neut % (Auto) 72.5 % 10/29/21 05:56 Lymph % (Auto) 15.4 % 10/29/21 05:56 [place] % (Auto) 12.0 % 10/29/21 05:56 Eos % (Auto) 0.0 % 10/29/21 05:56 Baso % (Auto) 0.0 % 10/29/21 05:56 Neut # (Auto) 6.77 K/uL (1.4-6.5) H 10/29/21 05:56 Lymph # (Auto) 1.44 K/uL (1.2-3.4) 10/29/21 05:56 [place] # (Auto) 1.12 K/uL (0.11-0.59) H 10/29/21 05:56 Eos # (Auto) 0.00 K/uL (0-0.5) 10/29/21 05:56 Baso # (Auto) 0.00 K/uL (0-0.2) 10/29/21 05:56 Immature Gran # (Auto) 0.01 K/uL (0.00-0.02) 10/29/21 05:56 Sodium 140 mmol/L (136-145) 10/29/21 05:56 Potassium 4.4 mmol/L (3.5-5.1) 10/29/21 05:56 Chloride 108 mmol/L (98-107) H 10/29/21 05:56 Carbon Dioxide 26 mmol/L (21-32) 10/29/21 05:56 Anion Gap 6 (3-11) 10/29/21 05:56 BUN 26 mg/dl (6-23) H 10/29/21 05:56 Creatinine 1.36 mg/dl (0.6-1.2) H 10/29/21 05:56 Est Cr Clr Drug Dosing 38.9 ml/min 10/29/21 05:56 Est GFR ( Amer) 47.2 ml/min 10/29/21 05:56 Est GFR (Non-Af Amer) 40.7 ml/min 10/29/21 05:56 BUN/Creatinine Ratio 19.1 (10-20) 10/29/21 05:56 Glucose 110 mg/dl (70-99(Fasting)) H 10/29/21 05:56 POC Glucose 116 mg/dl (70-99) H 10/29/21 08:13 Calcium 9.5 mg/dl (8.5-10.1) 10/29/21 05:56 SARS-CoV-2, RNA, NAAT NEGATIVE (NEGATIVE) 10/28/21 05:20 Blood Type A Positive 10/28/21 05:25 Antibody Screen NEGATIVE 10/28/21 05:25 Impressions Pelvis X-Ray 10/28/21 08:57 XR pelvis 1-2V routine CLINICAL HISTORY: Post Surgical TECHNIQUE: A single frontal view of the pelvis was obtained. Comparison: Comparison is made to hip and pelvis radiograph FINDINGS: Patient is status post placement of a left total hip arthroplasty. Stable right hip arthroplasty. Subcutaneous emphysema on the right is compatible with postoperative subcutaneous emphysema. IMPRESSION: Expected postoperative appearance status post placement of total hip arthroplasty. ACT 112: Negative or not required by law. Electronically signed by: Curtis Deal M.D. 10/28/2021 11:34 AM
--- NOTE | 2021-10-29 09:44 | Discharge Summary ---
Date of Service October 29, 2021 Admission HPI Per Admitting Provider History of Present Illness (including history relevant to procedure): This 66-year-old female presents the clinic today for preoperative history and physical. Patient complains of bilateral hip pain for the past several years. She states her Right hip is doing great following her total hip arthroplasty performed on August 26 of this year. She states that her Left hip is really becoming bothersome. She states that is preventing her from doing the full extent of her rehab and would like to have it replaced so that she can rehabilitate to the fullest extent. She states that she has tried meloxicam Advil Tylenol. Has had multiple ultrasound-guided corticosteroid injections into her hip joints without relief. She has done extensive physical therapy and some home rehab and feels that her pain continues to become worse. She has difficulty going up or down stairs. She states that even putting on pants is sometimes difficult. Patient is ready to proceed with surgical intervention for hip osteoarthritis. Review Of Systems: 12 point review of systems is performed is unremarkable except for those things stated in the HPI past medical history. Past Medical History: Problems: Degenerative joint disease of right hip Bilateral hip joint arthritis. Metatarsal fracture with malunion Injury of left foot Metatarsal fracture Status post surgery Internal jugular vein thrombosis Weight monitoring Preoperative state Anxiety depression Acne MIGRAINE Hypercholesterolemia HYPERTENSION Difficulty sleeping NECK PAIN Procedure History Procedure Procedure Date Comments section: 89 & Parathyroidectomy 2014 Kidney stones Operation 2010 & 2012 Lithotripsy 2013 Colonoscopy 2004 Cervical laminectomy 2002 Carpal tunnel release 1999 ACL - Right Reconstruction of anterior cruciate ligament 1994 Eye operation 1967 Reconstruction of facial bones 1967 Tonsillectomy Right total hip arthroplasty 1961 Allergies and Sensitivities: tetracycline(Rash) Social history: Patient denies tobacco or alcohol use. She states that she uses medical marijuana for her chronic pain. Family history: Cancer: MGF, Mother Diabetes mellitus: MGM Heart attack: PGF, PGM Heart disease: PGF, PGM Lung cancer......: Father Current Home Meds: (Last Updated 10/08 13:32) APAP/ASA/caffeine (Excedrin Migraine oral tablet) 2 tab PO ONCE PRN: as needed for headache DULoxetine (DULoxetine 30 mg oral delayed release capsule) 30 mg PO Daily amlodipine (amLODIPine 10 mg oral tablet) 10 mg PO qAM ascorbic acid (Vitamin C 500 mg oral capsule) 1 cap PO Daily aspirin 160 mg PO Daily atorvastatin (Lipitor 10 mg oral tablet) 10 mg PO qhs calcium and vitamin D combination 1 tab PO Daily cyclobenzaprine (Flexeril 10 mg oral tablet) 10 mg PO tid PRN: as needed for spasm diazePAM diclofenac topical (diclofenac 1% topical gel) 1 appl topical qid gabapentin (gabapentin 300 mg oral capsule) hydrochlorothiazide 25 mg PO Daily dose unknown daily - D Calixto 01/19 12:46 lidocaine topical (Lidoderm 5% topical patch) topical Daily meloxicam (Mobic 15 mg oral tablet) 15 mg PO Daily metFORMIN (metformin) 500 mg PO Daily multivitamin 1 tab PO Daily multivitamin (B-Complex 50) oxyCODONE (oxyCODONE 5 mg oral tablet) 5 mg PO q4h PRN: as needed for pain Maintenance RxPost op pain control. polycarbophil (Fibertab) 1 tab PO Daily potassium chloride (potassium chloride 99 mg oral tablet) 99 mg PO Daily sumatriptan (Imitrex 100 mg oral tablet) 1 tab PO ONCE PRN: as needed for migraine headache trazodone (traZODone 50 mg oral tablet) 50 mg PO qhs PRN: sleep Initial Wt: 10/08 76.4 kg 168 lb Admission Exam Per Admitting Provider Physical Exam: (relevant to the procedure, including heart and lung evaluation) General: Alert and oriented x3 with proper grooming and hygiene Eyes: Pupils are equal and react to light with accommodation. Extraocular movements are intact Throat: Deferred due to COVID-19 precautions Cardiac: Regular rate and rhythm with no murmurs or gallops appreciated Lungs: Clear to auscultation throughout with no wheezing, rales or rhonchi Abdomen: Mildly obese, nondistended, nontender with NABS Extremities: Left hip: flexion Is limited to 105 degrees. External rotation to 25 degrees, and Internal rotation is limited to 5 degrees. Logroll test is positive. Stinchfield test positive. Patient has tenderness to palpation over the groin. GREG test is positive with referred pain to the groin. There is crepitation with passive range of motion. Patient walks with an antalgic gait. Neuro: Cranial nerves II through XII are intact no motor or sensory deficit Skin: Normal appearance no open skin areas or discharge Principal Diagnosis Left hip osteoarthritis Discharge Exam Left hip: Outer dressing was removed. Silverlon Is clean dry and intact. Patient is able to perform an active straight leg raise test without difficulty. She is able to actively dorsi and plantarflex her foot without issue. Logroll test negative. Quad strength is 4 out of 5. Patient experiences some slight tension with light passive internal rotation. She has no pain with passive external rotation. She is neurovascularly intact in the left lower extremity. Discharge Data Allergies Allergy/AdvReac Type Severity Reaction Status Date / Time adhesive tape Allergy Mild Rash - Verified 10/28/21 09:19 with steri-strips nickel Allergy Mild Rash Verified 10/28/21 09:19 tetracycline Allergy Mild Rash Verified 10/28/21 05:25 Penicillins Allergy Unknown Unknown Verified 10/28/21 09:19 Procedures Performed Operation Date: 10/28/21 07:00 Actual Procedures p Left Total Hip Arthroplasty(Left) - Tapan Quick MD Hospital Course (1) S/P total hip arthroplasty: Patient had an uneventful overnight stay following left total hip ar throplasty. She is eager to be discharged home today. She states that she does not have any in-home physical therapy set up because she understands all the exercises that she needs to do. She recently underwent a right total hip arthroplasty about 6 weeks ago. She has all the equipment she needs at home. She is very pleased with the results of both surgeries. Total hip precautions reviewed PT/OT DVT prophylaxis with aspirin and JEREMY stockings Pain control with p.o. medication Ice with easy wrap Abduction pillow use for 6 weeks postoperatively Weightbearing as tolerated with walker assistance Keep Silverlon dressing in place Plan on discharge home today Follow-up at [facility] orthopedics as previously scheduled With questions contact our clinic at [phone] Total Time Total Time Spent Total Time Spent (In Minutes): 20 minutes Discharge Plan Discharge Items Patient Disposition: Home - Home Health Services Reason For Visit: Left Hip Osteoarthritis Discharge Diagnosis: Left Hip Osteoarthritis Activity: As commented below Lifting: None Bathing: Keep incision dry Bathing Comment: May shower tomorrow Sexual Activity: Wait until after follow-up appointment Exercise/Sports: Wait until after follow-up appointment Driving/Machine Use: No driving until cleared by orthopedics Weightbearing: Left weightbearing Weightbearing Comment: as tolerated with walker assistance Non-emergency contact: Surgeon Call non-emergency contact if: you have any medication questions, your symptoms worsen, your pain is not controlled, your temperature is above 101.5, your wound has increased drainage and your wound pain has increased Follow-up/Referrals: Demetris Mcgarry MD [Primary Care Provider] - Diet: Carb Consistent or DM2 Addtl Attending Provider Instructions: Post-operative Instructions Dear Patient and Family/Friends, Before you are discharged from the hospital, it is important to know what to expect when you get home after surgery. To that end, we have created this sheet of discharge instructions which covers many commonly asked questions. Make sure you go through this sheet in its entirety with your nurse before you are discharged. Please note that we will go over the specifics of your surgery and recovery when you return for your first post-operative visit. Sincerely, Dr. Quick Medications 1. Oxycodone 5 mg: take 1-2 tabs every 4-6 hours as needed for pain control. A prescription will be sent to your pharmacy. 2. Aspirin 325 mg: increase your daily aspirin to 325 mg twice daily for the first 30 days post operatively for blood clot prevention. 3. Meloxicam 15 mg: resume your daily dosage for post op pain and inflammation relief. 4. Extra Strength Tylenol 500 mg: take 2 tabs every 6-8 hours for additional pain relief. Please purchase. Pain Expect to be in a fair amount of pain after surgery. Remember, our goal is not to eliminate your pain, but to make it tolerable. It is a good idea to stay ahead of your pain by taking the medications you were prescribed once you get home. Typically, the pain starts improving 3-7 days after surgery. You should start weaning off the narcotic pain medication (oxycodone, hydrocodone, hydromorphone, morphine) as soon as your pain improves. Please call our office if your pain is not adequately controlled. Ice Ice your operative site at least 5 times a day for 15-30 minutes at a time. Make sure you have a thin cloth between the ice or cooling unit and your skin to prevent ruiz bite. This is especially important if you received a nerve block. Continue icing your operative site for the first 5-7 days after surgery, then as needed. Diet/Nausea/Vomiting Start by drinking clear liquids and eating crackers. If you can tolerate this, then you may resume your normal diet. If you feel nauseated or vomit, take Zofran/ondansetron (if prescribed). Please call our office if you have intractable nausea or vomiting, or, if after hours, you may go to the Emergency Room for help. Constipation Constipation is a common side effect of narcotic pain medication. If you have not had a bowel movement within 2 days after surgery, we recommend purchasing an over the counter laxative such as Milk of Magnesia, Dulcolax, or Miralax from a local pharmacy, and taking it as instructed. Call our clinic if any questions. Nerve block The anesthesia team sometimes places a nerve block to help with post-operative pain control. This results in significant numbness and inability to move the extremity. The nerve block usually wears off in 8-12 hours, but sometimes can last up to 24 hours. Please call our office if you are still unable to move your extremity after 24 hours, unless you received a pain pump to take home. N erve blocks typically wear off quickly, so start taking pain medication as soon as you start feeling soreness near your surgical site. Weight bearing and Range of Motion. Do not bear any weight through your operative extremity immediately after surgery. If you had upper extremity surgery, do not lift anything with that arm. If you are in a knee brace, keep it locked in place until your follow-up. We will discuss your weight bearing, range of motion, and lifting restrictions in detail at your first post-operative appointment. Continuous Passive Motion (CPM) Machine If you were prescribed a CPM machine, it will start after your first post- operative appointment, at which time we will give you instructions on the range of motion settings and duration of treatment Physical therapy You will be given a prescription for physical therapy or occupational therapy at your first post-operative appointment. Typically, patients start therapy within 1 week of surgery Wound care and showering We will inspect your wound at your first post-operative visit, and may do a dressing change at that time. Most patients will be in a water-proof dressing that is removed 14 days after surgery. It is normal to see some dried blood on the dressing. Do not remove your dressing, paper strips or sutures yourself unless you are given permission. Showering is allowed the day after surgery. Do not scrub or remove any dressings. The wound should not be submerged underwater (i.e. in a bathtub or pool) until 4 weeks after surgery JEREMY stockings If you were given white stockings, these are to be worn at all times except to shower (on both legs) for the first 2 weeks after surgery. Driving You may not drive while taking narcotic pain medication or while in a cast, splint, sling or brace. You, the patient, need to make the final determination about when you are safe to drive, however, the earliest you may consider driving after surgery is below: Hand/Wrist/Elbow Surgery: 3 days Shoulder Surgery: 2 weeks Hip,/Knee/Ankle Surgery: 4 weeks Fracture repair: 6 weeks Return to Work Your return to work depends on what surgery was done and what type of work you do. Please bring any paperwork your employer needs completed to your first post-operative visit. Also, bring a description of your job duties, as this helps us to understand what risks you may face at work. Travel Avoid long distance travel (greater than 1 hour) in airplanes and cars for the first 6 weeks after surgery. If you must travel, you need to have a Doppler ultrasound done before you travel to rule out a blood clot in your legs. Follow-up You should have a follow-up appointment already scheduled 1-2 days after surgery. If not, please contact our office to make this appointment before you leave the hospital. When to call the office It is normal to have swelling and bruising in the limb that was operated on. This will improve with time. It is also normal to have fevers for the first 2 days after surgery. Reasons you should call your doctor include: Uncontrolled pain; Nausea, vomiting, or constipation that does not improve with medication; Fevers over 101.5, chills, sweats; Drainage or bleeding from the wound; Foul odor; Spreading areas of redness; Any other concerns Pending Studies at Discharge: No Stand-Alone Forms: My pinion-pins, Smoking Cessation Medications and DC Order Prescriptions: New oxycodone 5 mg tablet 10 mg PO Q4H Qty: 28 RF: 0 Continued psyllium husk 0.52 gram capsule 0.52 g PO DAILY PRN (Reason: Constipation) RF: 0 diazepam 5 mg tablet 5 mg PO UD PRN (Reason: takes prior to flying) RF: 0 albuterol sulfate 90 mcg/actuation HFA aerosol inhaler 1 puff INH UD PRN (Reason: sob) RF: 0 gabapentin 300 mg capsule 300 mg PO TID RF: 0 lidocaine [Lidoderm] 5 % adhesive patch,medicated 1 patch transdermal UD PRN (Reason: Pain) RF: 0 trazodone 150 mg tablet 75 mg PO HS RF: 0 amlodipine 10 mg tablet 10 mg PO QAM RF: 0 ascorbic acid (vitamin C) 500 mg tablet 500 mg PO QAM RF: 0 sumatriptan succinate 100 mg tablet 100 mg PO UD PRN (Reason: migraines) RF: 0 aspirin 325 mg tablet 162.5 mg PO QAM RF: 0 atorvastatin 10 mg tablet 10 mg PO HS RF: 0 cyclobenzaprine 10 mg tablet 10 mg PO UD PRN (Reason: Muscle Spasm) RF: 0 duloxetine 60 mg PO HS MDD 60 RF: 0 potassium chloride 1 dose PO QAM RF: 0 multivitamin Tablet 1 tab PO QAM RF: 0 metformin 500 mg Tablet 500 mg PO BID RF: 0 meloxicam 15 mg Tablet 15 mg PO QAM RF: 0 vitamin B complex Capsule 1 cap PO QAM RF: 0 cholecalciferol (vitamin D3) [Vitamin D3] 125 mcg (5,000 unit) Tablet 125 mcg PO QAM RF: 0 turmeric 400 mg Capsule 400 mg PO QAM RF: 0 Glucosamine Chondroitin 550-30-1 mg Capsule 1 cap PO QAM RF: 0 Elecon Topical Cream 1 dose topical DAILY RF: 0 oxycodone 5 mg tablet 5 mg PO Q4H Qty: 30 RF: 0 Changed aspirin 325 mg tablet 325 mg PO BID Qty: 0 RF: 0 Discharge Orders: Discharge Order (Routine); Ordered 10/29/21 Ordered By: Dwayne Bennett Admission Data Admit Date/Time: 10/28/21 08:57 Attending Provider: Tapan Quick Admit Provider: Tapan Quick Primary Care Provider: Demetris Mcgarry
[2021-10-29] MEDS ORDERED: CeleBREX 200 MG CAP PO SCH (21:00)
== END 2021-10-29 11:42 | disposition home health service (06) ==
LOC: ASU 05:06 → 3E 05:06